=== PATIENT | female | born 1955 | race Caucasian/White ===

== ENCOUNTER 2018-02-26 17:00 | Outpatient (REF) | payer OTHER, SELFPAY ==
[2018-02-26 20:41] LABS: Bacteria Rare HPF (Negative); Epithelial Cells Rare HPF (Negative); Other Cells Negative (Negative); RBC 0-2 (0-2); WBC 0-2 HPF (0-5)
[2018-02-26 20:42] LABS: C & S Indicated? C&S Done As Ordered; Casts Negative LPF (Negative); Crystals Many Calcium Oxalate HPF (Negative); Mucus Negative (Negative)
== END 2018-02-26 17:20 ==
LOC: NCHCN 17:00
PROVIDERS: PCP Physician Assistant Medical; Visit Provider Specialist/Technologist Athletic Trainer
DX: R10.84 Generalized abdominal pain (principal)
CPT/HCPCS: 81015; 87086

== ENCOUNTER 2018-02-27 16:19 | Outpatient (CLI) | payer OTHER, SELFPAY ==
[2018-02-27 16:48] LABS: Absolute Basophil Count 0.02 k/cumm (0.0-0.2); Absolute Eosinophil Count 0.09 k/cumm (0.0-0.7); Absolute Lymphocyte Count 1.51 k/cumm (1.2-3.4); Absolute Neutrophil Count 2.61 k/cumm (1.2-6.7); Basophils % 0.4; Eosinophils % 1.9; HCT 37.8 % (36.0-46.0); HGB 12.7 g/dL (12.0-15.5); Lymphocytes % 32.6; Mean Corp. HGB Concentration 33.6 g/dL (32.0-36.0); Mean Corpuscular Hemoglobin 31.3 pg (27.0-33.0); Mean Corpuscular Volume 93.1 fL (80-95); Mean Platelet Volume 11.2 fL (8.0-11.0); Monocytes % 8.6; Neutrophils % 56.5; Platelet Count 176 x1000/uL (130-400); RBC 4.06 m/cumm (4.00-5.20); RBC Distribution Width 12.1 % (11.7-14.6); White Blood Cell Count 4.63 k/cumm (4.4-10.8)
[2018-02-27 17:42] LABS: ALT 26 U/L (12-78); AST 18 U/L (15-37); Alkaline Phosphatase 58 U/L (46-116); Anion Gap 10.4 mmol/L (3-11); BUN 14 mg/dL (7-18); Bilirubin, Total 0.4 mg/dL (0.2-1.0); CO2 26.6 mmol/L (21.0-32.0); CREATININE 0.69 mg/dL (0.55-1.02); Calcium 9.4 mg/dL (8.5-10.1); Chloride 104 mmol/L (98-107); Glucose 111 mg/dL (70-100); Potassium 3.8 mmol/L (3.5-5.1); Sodium 141 mmol/L (136-145); Total Protein 6.9 g/dL (6.4-8.2)
[2018-02-27 20:32] LABS: Lipase 240 U/L (73-393)
[2018-03-01 19:01] LABS: Tissue Transglutaminase Ab IgA <1.2 U/mL; Tissue Transglutaminase Ab IgG 1.4 U/mL
== END 2018-02-27 16:39 ==
PROVIDERS: PCP Physician Assistant Medical; Visit Provider Specialist/Technologist Athletic Trainer
DX: R10.84 Generalized abdominal pain (principal)
CPT/HCPCS: 36415; 80053; 83690; 83516; 85025

== ENCOUNTER 2018-11-03 15:22 | Outpatient (REF) | payer OTHER, SELFPAY ==
[2018-11-03 21:23] LABS: Bilirubin Negative (Negative); Blood Trace-intact (Negative); Clarity Clear (Clear); Glucose Negative (Negative); Ketones Negative (Negative); Leukocyte Esterase Negative (Negative); Nitrite Negative (Negative); Specific Gravity 1.015 (1.005-1.025); Urobilinogen 0.2 EU/dL (Up TO 0.2); pH 7.5 (5-8)
[2018-11-03 21:31] LABS: Bacteria Negative HPF (Negative); C & S Indicated? No; Casts Negative LPF (Negative); Crystals Negative HPF (Negative); Epithelial Cells Negative HPF (Negative); Mucus Negative (Negative); WBC 0-2 HPF (0-5)
== END 2018-11-03 15:42 ==
LOC: NCHCN 15:22
PROVIDERS: PCP Physician Assistant Medical; Visit Provider Physician Assistant Medical
DX: R10.2 Pelvic and perineal pain (principal)
CPT/HCPCS: 81003; 81015

== ENCOUNTER 2018-11-06 01:27 | Outpatient (CLI) | payer OTHER, SELFPAY ==
--- NOTE | 2018-11-06 14:16 | DI.US_ITS ---
EXAM: US PELVIS AND TRANSVAGINAL CLINICAL HISTORY: PELVIC PAIN R10.2. TECHNIQUE: Pelvic ultrasound was performed transabdominally and transvaginally. COMPARISON: No exams were available for comparison FINDINGS: Please see the accompanying data sheet for measurements of pelvic structures. Endometrial stripe is heterogeneous and about 10 millimeters in thickness, this is abnormal in the postmenopausal group and correlation with endometrial biopsy should be considered to exclude neoplastic disease. Right ovary unremarkable in appearance. Left ovary nonvisualized transabdominally or transvaginally. Limited s gurwinder of the kidneys is unremarkable. IMPRESSION: Thickened heterogeneous endometrial stripe, endometrial biopsy should be considered to exclude neopla stic disease
== END 2018-11-06 01:47 ==
PROVIDERS: PCP Physician Assistant Medical; Visit Provider Physician Assistant Medical
DX: R10.2 Pelvic and perineal pain (principal); R93.89 Abnormal findings on diagnostic imaging of other specified body structures
CPT/HCPCS: 76830; 76856

== ENCOUNTER 2018-11-21 13:13 | Outpatient (REF) | payer OTHER, SELFPAY ==
--- NOTE | 2018-11-21 12:15 | ENDOMET_PTH ---
PATIENT: Soniya Sahu LOC: N U#:[id number] AGE/SX: 63/F ROOM: RE11/21/[address]: Li Linn MD : 1955 BED: DIS: 11/21/2018 SPEC #: [id number] RECD: 11/21/18 17:25 STATUS: ESTHER REQ #: [id number] CHIQUITA: 11/21/18 12:[address]: Li Linn DEPT: Surgical Specimen RECD BY: Christine Sosa ENTERED: 11/21/18 17:25 SP TYPE: Endomet OTHR DR: Priti Walsh Tissues: 1 - ENDOMETRIUM BX/MARYBETH Procedures: GROSS AND MICRO LEVEL 4 Comments: [id number]
== END 2018-11-21 13:33 ==
LOC: LBN 13:13
PROVIDERS: PCP Physician Assistant Medical; Visit Provider Obstetrics & Gynecology
DX: N85.8 Other specified noninflammatory disorders of uterus (principal); N95.8 Other specified menopausal and perimenopausal disorders
CPT/HCPCS: 88305

== ENCOUNTER 2019-01-27 02:33 | Outpatient (CLI) | payer OTHER, SELFPAY ==
--- NOTE | 2019-01-27 16:02 | DI.MAMMO_ITS ---
EXAM: MG MAMMO SCREENING CLINICAL HISTORY: SCREENING, Z13.9. TECHNIQUE: Full field digital CC and MLO mammographic images were obtained with 3D tomosynthesis and utilizing computer aided detection (CAD). COMPARISON: 2012 FINDINGS: Breast density: B Masses/Architectural Distortion: None seen. Microcalcifications: No suspicious pleomorphic-type calcifications are seen. Skin Thickening/Nipple Retraction: None. Axilla: Unremarkable. IMPRESSION: 1. BI-RADS category 1, negative. No significant interval change with no specific features of maligna ncy noted. 2. Unless there is more urgent need, screening mammography is recommended, as per [employer] guidelines. BI-RADS Cat 1 - Negative Breast Density - Category B - Scattered areas of fibroglandular density A negative radiographic report should not delay biopsy if a dominant or clinically suspicious mass is present. Up to ten percent of cancers are not identified on mammography. A negative report may reinforce clinical impression. Adenosis and dense breasts may obscure an underlying neoplasm. False positive reports average 6 to 10%. Patient will receive a letter notifying them of these results.
== END 2019-01-27 02:53 ==
PROVIDERS: PCP Physician Assistant Medical; Visit Provider Physician Assistant Medical
DX: Z12.31 Encounter for screening mammogram for malignant neoplasm of breast (principal)
CPT/HCPCS: 77063; 77067

== ENCOUNTER 2019-07-25 08:53 | Emergency (ER) | payer OTHER, SELFPAY ==
[2019-07-25] VITALS (57 sets, daily range): BP systolic 112–165; BP diastolic 51–83; PULSE 51–81; RESP 12–25; TEMP 36.8; O2SAT 97–100
[2019-07-25 09:13] LABS: Absolute Basophil Count 0.04 k/cumm (0.0-0.2); Absolute Monocyte Count 0.42 k/cumm (0.11-0.7); Absolute Neutrophil Count 2.49 k/cumm (1.2-6.7); Basophils % 0.9; Eosinophils % 2.3; HCT 40.5 % (36.0-46.0); HGB 13.3 g/dL (12.0-15.5); Lymphocytes % 29.9; Mean Corp. HGB Concentration 32.8 g/dL (32.0-36.0); Mean Corpuscular Hemoglobin 30.8 pg (27.0-33.0); Mean Corpuscular Volume 93.8 fL (80-95); Mean Platelet Volume 11.4 fL (8.0-11.0); Monocytes % 9.7; Neutrophils % 57.2; Platelet Count 188 x1000/uL (130-400); RBC 4.32 m/cumm (4.00-5.20); RBC Distribution Width 12.2 % (11.7-14.6); White Blood Cell Count 4.35 k/cumm (4.4-10.8)
[2019-07-25 09:28] LABS: ALT 30 U/L (14-59); AST 22 U/L (15-37); Alkaline Phosphatase 69 U/L (46-116); BUN 9 mg/dL (7-18); Bilirubin, Total 0.5 mg/dL (0.2-1.0); CREATININE 0.88 mg/dL (0.55-1.02); Calcium 9.7 mg/dL (8.5-10.1); Chloride 104 mmol/L (98-107); Glucose 82 mg/dL (74-106); Potassium 3.8 mmol/L (3.5-5.1); Sodium 142 mmol/L (136-145); Total Protein 7.5 g/dL (6.4-8.2)
[2019-07-25 09:29] LABS: Troponin I < 0.05 ng/mL (<0.06)
--- NOTE | 2019-07-25 09:31 | ED.GENADUL_ITS ---
Discharge Plan Disposition Patient Disposition: AGAINST MEDICAL ADVICE Condition: Stable Discharge Details Chief Complaint: Chest Pain Clinical Impression: Chest pain, Left arm pain, Back pain Primary Care Provider: Priti Walsh ED Provider: Lisa Werner Home Meds and New Rx's Prescriptions: No Action No Known Home Meds RF: 0 Discharge Instructions Instructions: Chest Pain (ED), Back Pain (ED) Additional Instructions: Drink plenty of fluids and get plenty of rest. Take Tylenol as needed and directed for pain. You will be contacted regarding a follow-up appointment for an outpatient stress test. Call your primary care doctor's office on Saturday morning to arrange for follow- up appointment and to follow-up on the scheduling of the outpatient stress test. Return immediately to the emergency department if you develop any worsening or new concerning symptoms. Discharge Data Discharge Date/Time-TO BE ENTERED AT DEPARTURE: 07/25/19 13:49 Discharge Physician: Lisa Werner Medical Decision Making 0900 -- 63-year-old female with a history of GERD, arthritis who presents for intermittent aching mid back pain with radiation to her left arm causing heaviness and discomfort since yesterday and a brief episode of substernal sharp chest pain today. Discomfort in arm currently 6/10. EKG notes a rate of 61, sinus with no acute ST ischemic changes. She appears in no acute distress. Blood pressure mildly hypertensive 158/68. Lungs clear. Distal pulses intact. No focal deficits. Her arm discomfort is concerning for possible ACS. Patient states she would rather go home if possible. She is agreeable to stay for second troponin. 1000 -- labs and imaging reviewed and unremarkable. Troponin negative. CT negative for acute findings. 1230 -- Repeat EKG notes a rate of 53, sinus with no acute ST ischemic changes. Second troponin negative. Patient had relief of pain with 1 nitro. She did develop a headache and declined any further nitro. Headache resolved with 325 aspirin p.o. x 1. She declined any Tylenol. Discussed with patient that with her concerning history of arm, chest and back pain which was responsive to nitro, would recommend admission for observation, serial troponins, and plan for stress test. Despite our efforts, the patient has decided to leave against medical advice. She has a normal mental status and full decisional capacity. The patient understands her condition and the risks of leaving AMA, including BUT NOT LIMITED TO permanent disability, , etc., and has had an opportunity to ask questions about her medical condition. The patient has been informed that she may return for care at any time, and has been referred to her local medical physician for follow up VIRGIE. An order was also placed for an outpatient stress test. Medical Records Medical records reviewed: Yes I reviewed the patient's medical records. Imaging Data Radiologic Study: Radiologist's impression: CT Angiography Chest With Contrast Exam date and time: 07/25/2019 10:11 AM Age: 63 years old Clinical indication: Other: Chest pain, back pain, lt arm pain TECHNIQUE: Imaging protocol: Computed tomographic angiography of the chest with intravenous contrast. 3D rendering: MIP and/or 3D reconstructed images were created by the technologist. Radiation optimization: All CT scans at this facility use at least one of these dose optimization techniques: automated exposure control; mA and/or kV adjustment per patient size (includes targeted exams where dose is matched to clinical indication); or iterative reconstruction. Contrast material: OMNIPAQUE 350; Contrast volume: 61 ml; Contrast route: IV; COMPARISON: No relevant prior studies available. FINDINGS: Pulmonary arteries: No evidence of pulmonary embolus to the segmental level. Aorta: No aneurysm of the aorta. No dissection of the aorta. Lungs: Mild panlobular emphysematous changes Bibasilar atelectasis Pleural space: Unremarkable. No pneumothorax. No pleural effusion. Heart: Unremarkable. No cardiomegaly. No pericardial effusion. Lymph nodes: Unremarkable. No enlarged lymph nodes. Bones/joints: Unremarkable. No acute fracture. Soft tissues: Unremarkable. IMPRESSION: 1. No evidence of pulmonary embolus to the segmental level. 2. No aneurysm of the aorta. 3. No dissection of the aorta. Lab Data Lab results reviewed: Yes I reviewed the patient's lab results. Labs: Laboratory Tests Range/Units 07/25/19 07/25/19 07/25/19 09:05 09:05 12:03 WBC (4.4-10.8) k/cumm 4.35 L RBC (4.00-5.20) m/cumm 4.32 Hgb (12.0-15.5) g/dL 13.3 Hct (36.0-46.0) % 40.5 MCV (80-95) fL 93.8 MCH (27.0-33.0) pg 30.8 MCHC (32.0-36.0) g/dL 32.8 RDW (11.7-14.6) % 12.2 Plt Count (130-400) x1000/uL 188 MPV (8.0-11.0) fL 11.4 H Immature Gran % % 0.0 Neutrophils % 57.2 Lymphocytes % 29.9 Monocytes % 9.7 Eosinophils % 2.3 Basophils % 0.9 Absolute Neutrophils (1.2-6.7) k/cumm 2.49 Absolute Lymphocytes (1.2-3.4) k/cumm 1.30 Absolute Monocytes (0.11-0.7) k/cumm 0.42 Absolute Eosinophils (0.0-0.7) k/cumm 0.10 Absolute Basophils (0.0-0.2) k/cumm 0.04 Sodium (136-145) mmol/L 142 Potassium (3.5-5.1) mmol/L 3.8 Chloride (98-107) mmol/L 104 Carbon Dioxide (21.0-32.0) mmol/L 30.0 Anion Gap (3-11) mmol/L 8.0 BUN (7-18) mg/dL 9 Creatinine (0.55-1.02) mg/dL 0.88 Estimated GFR/1.73 m2 (mL/min/1.73m2) >= 60.00 Glucose (74-106) mg/dL 82 Calcium (8.5-10.1) mg/dL 9.7 Magnesium (1.8-2.4) mg/dL 2.0 Total Bilirubin (0.2-1.0) mg/dL 0.5 AST (15-37) U/L 22 ALT (14-59) U/L 30 Alkaline Phosphatase (46-116) U/L 69 Troponin I (<0.06) ng/mL < 0.05 < 0.05 Total Protein (6.4-8.2) g/dL 7.5 Albumin (3.4-5.0) g/dL 4.0 ECG Data Attestation: I personally reviewed and interpreted this ECG (s) as follows: Interpretation: Rate of 61, sinus. No acute ST elevation or depression. MT 110. QTc 379. QRS 90. Rate of 53, sinus. No acute ST elevation or depression. MT 114. QTc 396. QRS 88. HPI General Mode of arrival: ambulatory . Date/Time Provider Initiated Documentation: 07/25/19 08:55 . Limitations to Documentation: no limitations . Information obtained by: patient . HPI Narrative: Patient is a 63-year-old female with a history of GERD and irritable bowel syndrome who presents with 2 days of back pain with radiation to her left arm causing discomfort and heaviness. She admits to a brief few second episode of sharp substernal chest pain this morning while she was sitting texting but none since then. She describes the back pain is aching and intermittent. She denies any aggravating or alleviating factors. She denies any fever, cough, shortness of breath, carlo sea, vomiting, dizziness. She is unsure if she has had a stress test in the past. She denies any known injury, recent travel, recent surgery, leg pain or swelling Related Data Home Medications Medication Instructions Recorded Confirmed Unknown [No Known Home Meds] 07/25/19 07/25/19 Allergies Allergy/AdvReac Type Severity Reaction Status Date / Time No Known Allergies Allergy Unverified 07/25/19 09:02 General Stated Complaint: Chest Pain JESSICA: 2 Review of Systems All systems reviewed & are unremarkable except as noted in HPI and below Constitutional Constitutional: Reports as per HPI, Denies chills and Denies fever(s) Eyes Eyes: Denies blurry vision ENT Ears, Nose, Mouth, and Throat: Denies dizziness, Denies sore throat and Denies throat swelling Cardiovascular Cardiovascular: Denies chest pain and Denies dyspnea Respiratory Respiratory: Denies cough and Denies dyspnea Gastrointestinal Gastrointestinal: Denies abdominal pain, Denies diarrhea and Denies vomiting Genitourinary Genitourinary: Denies hematuria and Denies dysuria Musculoskeletal Musculoskeletal: Denies back pain and Denies numbness Integumentary/Breasts Skin/Breast: Denies lesions and Denies rash Neurologic Neurologic: Denies dizziness, Denies localized weakness and Denies numbness Allergic/Immunologic Allergic/Immunologic: Denies throat swelling [facility] Medical History (Updated 07/25/19 @ 13:28 by Lisa Werner DO) Degenerative joint disease (Chronic) GERD (gastroesophageal reflux disease) (Chronic) Irritable bowel syndrome (Chronic) Neuropathy (Acute) Surgical History (Updated 07/25/19 @ 11:12 by OFELIA Amin H/O thumb surgery (Acute) History of bilateral tubal ligation (Acute) Social History Smoking/Tobacco Use Status: Former Tobacco Use Alcohol Intake: never Drug use: Never Substance use type: does not use Do you feel safe at home: Yes Do you feel safe in your relationship?: Yes Exam Const General: cooperative, healthy appearing and no acute distress HENMT Head: normal to inspection Face and sinus: normal facial exam Eyes General: appearance normal, both eyes and all related structures EOM: EOM intact bilaterally Neck Neck: normal visual inspection and No submandibular swelling Lymphatic: no lymphadenopathy noted Chest Chest: normal inspection of the chest and no tenderness Resp Effort & Inspection: normal respiratory effort and able to speak in complete sentences Auscultation: clear to auscultation bilaterally Cardio Rate: regular rate Rhythm: regular rhythm GI Inspection: normal to inspection Palpation: soft, not firm, not rigid and nontender Auscultation: normal bowel sounds Back/Spine/Pelvis Thoracic/Lumbar Spine: thoracic and lumbar spine normal to inspection, No thoracic spinal tenderness and No lumbar spinal tenderness Skin General skin exam: no rashes or lesions noted Neuro General: patient alert, patient awake, patient oriented x3 and moves all extremities Cognition: normal cognition Speech: speech normal Motor: muscle tone normal throughout and strength 5/5 throughout Sensory Exam: no sensory deficits noted Extrem General: normal to inspection, full ROM, capillary refill normal, no calf tenderness bilaterally and no edema Other: Bilateral radial and ulnar pulses intact. Psych Appearance: grossly normal Mental Status: mental status grossly normal Speech and Movement: speech and movement normal Affect: normal affect Course Vital Signs Vital signs: Vital Signs Temperature 98.2 F 07/25/19 08:57 Pulse 60 07/25/19 08:57 Respiratory Rate 18 07/25/19 08:57 Blood Pressure 165/71 H 07/25/19 08:57 Pulse Oximetry 100 07/25/19 08:57 Temperature 98.2 F 07/25/19 08:57 Temperature Source Temporal Artery Scan 07/25/19 08:57 Pulse 60 07/25/19 08:57 Respiratory Rate 18 07/25/19 09:04 Respiratory Effort Non-Labored 07/25/19 09:04 Respiratory Depth Normal 07/25/19 09:04 Respiratory Pattern Normal 07/25/19 09:04 Blood Pressure 165/71 H 07/25/19 08:57 Blood Pressure Position Supine 07/25/19 08:57 Pulse Oximetry 100 07/25/19 08:57 Oxygen Delivery Method Room Air 07/25/19 08:57 Oxygen Flow Rate 0 07/25/19 08:57 Pain Level 4 07/25/19 08:57 Lab/Test Results Lab/Test Results: Laboratory Tests Range/Units 07/25/19 07/25/19 09:05 09:05 WBC (4.4-10.8) k/cumm 4.35 L RBC (4.00-5.20) m/cumm 4.32 Hgb (12.0-15.5) g/dL 13.3 Hct (36.0-46.0) % 40.5 MCV (80-95) fL 93.8 MCH (27.0-33.0) pg 30.8 MCHC (32.0-36.0) g/dL 32.8 RDW (11.7-14.6) % 12.2 Plt Count (130-400) x1000/uL 188 MPV (8.0-11.0) fL 11.4 H Immature Gran % % 0.0 Neutrophils % 57.2 Lymphocytes % 29.9 Monocytes % 9.7 Eosinophils % 2.3 Basophils % 0.9 Absolute Neutrophils (1.2-6.7) k/cumm 2.49 Absolute Lymphocytes (1.2-3.4) k/cumm 1.30 Absolute Monocytes (0.11-0.7) k/cumm 0.42 Absolute Eosinophils (0.0-0.7) k/cumm 0.10 Absolute Basophils (0.0-0.2) k/cumm 0.04 Sodium (136-145) mmol/L 142 Potassium (3.5-5.1) mmol/L 3.8 Chloride (98-107) mmol/L 104 Carbon Dioxide (21.0-32.0) mmol/L 30.0 Anion Gap (3-11) mmol/L 8.0 BUN (7-18) mg/dL 9 Creatinine (0.55-1.02) mg/dL 0.88 Estimated GFR/1.73 m2 (mL/min/1.73m2) >= 60.00 Glucose (74-106) mg/dL 82 Calcium (8.5-10.1) mg/dL 9.7 Magnesium (1.8-2.4) mg/dL 2.0 Total Bilirubin (0.2-1.0) mg/dL 0.5 AST (15-37) U/L 22 ALT (14-59) U/L 30 Alkaline Phosphatase (46-116) U/L 69 Troponin I (<0.06) ng/mL < 0.05 Total Protein (6.4-8.2) g/dL 7.5 Albumin (3.4-5.0) g/dL 4.0
--- NOTE | 2019-07-25 09:45 | DI.CT_ITS ---
EXAM: CT CHEST PE CTA CLINICAL HISTORY: Chest pain, back pain, L arm pain. TECHNIQUE: Imaging Protocol: Axial CT angiography was performed with multi-slice acquisition and mu lti-planar and/or 3D reconstructions. CONTRAST MATERIAL: Intravenous: Omnipaque 350 Contrast volume:61 ml COMPARISON: No exams were available for comparison FINDINGS: Pulmonary Arteries: No evidence of filling defect to suggest pulmonary emboli. Tracheobronchial tree: Patent where visualized. Mediastinum and Claudia: No dominant adenopathy or fluid collection. Pulmonary parenchyma: No consolidation or dominant measurable mass. Emphysematous changes in the uppe r lobes. Pleura: No effusion or pneumothorax. Heart: The heart is not dilated. No coronary artery calcifications are seen. Aorta: Thoracic aorta non-dilated. Upper abdomen: Unremarkable. Bones: Normal. IMPRESSION: No evidence of pulmonary embolism or other acute abnormality. RADIATION DOSE DELIVERED: 327.25mGy.cm Total DLP DATA REPOSITORY: All CT scans at this facility are submitted to the National Radiology Data Registry (NRDR) Dose Index Registry (DIR) with the [employer] (ACR). RADIATION OPTIMIZATION: All CT scans at this facility use at least one of these dose optimization te chniques: automated exposure control; mA and/or kV adjustment per patient size (includes targeted exa ms where dose is matched to clinical indication); or iterative reconstruction.
[2019-07-25] MEDS: Normal Saline Flush 10 ML SYR IVP (10:12)
[2019-07-25] MEDS: Omnipaque 350 MG/ML 100 ML BTL IJ (10:12)
--- NOTE | 2019-07-25 10:36 | DI.VRAD_ITS ---
PROCEDURE INFORMATION: Exam: CT Angiography Chest With Contrast Exam date and time: 07/25/2019 10:11 AM Age: 63 years old Clinical indication: Other: Chest pain, back pain, lt arm pain TECHNIQUE: Imaging protocol: Computed tomographic angiography of the chest with intravenous contrast. 3D rendering: MIP and/or 3D reconstructed images were created by the technologist. Radiation optimization: All CT scans at this facility use at least one of these dose optimization techniques: automated exposure control; mA and/or kV adjustment per patient size (includes targeted exams where dose is matched to clinical indication); or iterative reconstruction. Contrast material: OMNIPAQUE 350; Contrast volume: 61 ml; Contrast route: IV; COMPARISON: No relevant prior studies available. FINDINGS: Pulmonary arteries: No evidence of pulmonary embolus to the segmental level. Aorta: No aneurysm of the aorta. No dissection of the aorta. Lungs: Mild panlobular emphysematous changes Bibasilar atelectasis Pleural space: Unremarkable. No pneumothorax. No pleural effusion. Heart: Unremarkable. No cardiomegaly. No pericardial effusion. Lymph nodes: Unremarkable. No enlarged lymph nodes. Bones/joints: Unremarkable. No acute fracture. Soft tissues: Unremarkable. IMPRESSION: 1. No evidence of pulmonary embolus to the segmental level. 2. No aneurysm of the aorta. 3. No dissection of the aorta. Dictated and Authenticated by: Sushma Rebollar MD. Ordering:NICHOLAS Gonzalez MD
[2019-07-25] MEDS: Normal Saline 1,000 ML 1000 ML IV (10:39)
[2019-07-25] MEDS: Aspirin 325 MG TAB PO (10:51)
[2019-07-25 12:29] LABS: Troponin I < 0.05 ng/mL (<0.06)
--- NOTE | 2019-07-27 09:38 | PDOC.ERCMPRO ---
- If Service Date Differs Date of service: 07/27/19 Time of Service: 09:38 Care Management Progress Note At the request of ED provider, CM coordinates patient being seen by PCP (Priti Walsh - [facility]) for a follow up appointment to ED visit, in addition to requesting PCP order a stress test from DI.
== END 2019-07-25 13:49 | disposition left against medical advice (07) ==
PROVIDERS: Emergency Provider Physician Assistant; PCP Physician Assistant Medical
DX: M79.602 Pain in left arm (principal); R07.89 Other chest pain; M54.6 Pain in thoracic spine; K21.9 Gastro-esophageal reflux disease without esophagitis; Z53.29 Procedure and treatment not carried out because of patient's decision for other reasons
CPT/HCPCS: 36415; 71275; 80053; 93005; 96360; 99285; 83735; 84484; 85025; 93010; J3490

== ENCOUNTER 2019-07-28 08:44 | Outpatient (REF) | payer OTHER, SELFPAY ==
[2019-07-28 20:23] LABS: Calculated LDL 61 mg/dL (<100); Cholesterol 152 mg/dL (<200); HDL Cholesterol 76 mg/dL (40-60); Triglyceride 77 mg/dL (<150)
== END 2019-07-28 09:04 ==
LOC: NCHCN 08:44
PROVIDERS: PCP Physician Assistant Medical; Visit Provider Physician Assistant Medical
DX: R07.9 Chest pain, unspecified (principal)
CPT/HCPCS: 80061

== ENCOUNTER 2019-07-30 02:49 | Outpatient (CLI) | payer OTHER, SELFPAY ==
--- NOTE | 2019-07-30 | ETT_ITS ---
APPROVED REPORT Exam: Exercise Treadmill Patient Location: Out-Patient Room/Bed: Stress Nurse: Brooklynn King RN BMI: 22.62 Baseline Rhythm: Sinus Bradycardia, with a short VA interval of 0.10. Frequent PAC's. Indications: Patient reports brief ???on and off??? midsternal chest pain (06/20) with both rest and a ctivity. On 07/25/2019 she presented to the ED with dull aching between her shoulder blades in her shane k, sharp left shoulder pain and a dull aching of her left arm. In the ED her discomfort relieved with 1 Nitro and troponins were negative X2. Medical History Medical History: GERD, Degenerative Joint Disease. Cardiac Medications: None reported by patient., Allergies: No known drug allergies Cardiac Risk Factors: No cardiac risk factors. Previous Cardiac Procedures: None Pretest Chest Pain Characteristics: Dull aching between her shoulder blades in her back, sharp left s houlder pain and a dull aching of her left arm. (08/20). Exercise History: Physically active Physical Disabilities: None Lung Sounds: Clear to auscultation Heart Sounds: Regular Stress Test Details Test: Exercise stress testing was performed using a Johnny protocol. Rest Stress HR Resting HR Supine: 54 bpm Max Heart Rate (APMHR): 157 bpm Resting HR Standin bpm Target HR (85% APMHR): 133 bpm Max HR Achieved: 167 bpm % of APMHR: 106 HR response to stress: Normal HR response to stress BP Resting BP Supine: 140/72 mmHg Resting BP Standin/70 mmHg Max BP: 162/60 mmHg BP response to stress: Normal blood pressure response to stress. ECG Resting ECG: Sinus Bradycardia Stress ECG: Sinus Tachycardia ST Change: Horizontal ST depression Lead(s): II, III, aVF Stage: [address] Deviation: 1.5 mm Arrhythmia: APC's Recovery ECG: Sinus tachycardia Recovery ST Change: Horizontal ST depression Lead(s): Inferior leads Recovery ST Deviation: 1 mm Recovery Arrhythmia: VPC Clinical Reason for Termination: Fatigue Stress Symptoms: No changes in back, left shoulder and left arm pain per patient report. Exercise duration: 9 min32 sec Highest Stage Reached: Stage 4: 4.2 mph at 16% grade. Exercise capacity: 11.01 METs Functional Capacity: Above average capacity Stress ECG Conclusion 1. Patient exercised for 9 minutes and 30 seconds (11 METS). Exercise was stopped due to fatigue. 2. There were no symptoms suggestive of ischemia. 3. The patient had 1.[address] depressions in the inferior leads during exercise and the ini tial points of recovery. 4. The Madrid Score ( 1) estimates an annual cardiovascular mortality of 1% and a five year survival of 93%. Using the Madrid Score there is an intermediate probability of angiographic coronary disease. Stress Test Summary STAGE Time (mins) Speed (mph) Grade (%) HR BP SYMPTOMS METS Supine 54 140/72 Standing 66 136/70 1 3 1.7 10 104 148/68 4.6 2 6 2.5 12 110 154/62 7 3 9 3.4 14 135 10.2 1 min recovery 136 162/60 3 min recovery 92 156/64 6 min recovery 75 148/70 9 min recovery 71 144/72
--- NOTE | 2019-07-30 08:25 | DI.RAD_ITS ---
EXAM: XR THORACIC SPINE COMPLETE CLINICAL HISTORY: THORACIC BACK PAIN, M54.6. TECHNIQUE: 2D digital imaging was performed. COMPARISON: No exams were available for comparison FINDINGS: BONES: There is no fracture or destructive lesion. The vertebral bodies and posterior elements are un remarkable. DISKS:Interverebral disc spaces are maintained. There are minimal degenerative disc changes in the mi d thoracic spine . SOFT TISSUE: Visualized lungs are clear. IMPRESSION: Minimal degenerative changes. DATA REPOSITORY: RADIATION DOSE DELIVERED:
== END 2019-07-30 03:09 ==
PROVIDERS: PCP Physician Assistant Medical; Visit Provider Physician Assistant Medical
DX: R07.9 Chest pain, unspecified (principal); M79.622 Pain in left upper arm; K21.9 Gastro-esophageal reflux disease without esophagitis; M54.6 Pain in thoracic spine; M51.34 Other intervertebral disc degeneration, thoracic region
CPT/HCPCS: 72072; 93017

== ENCOUNTER → 2022-01-11 02:23 | Outpatient (CLI) | payer MEDICARE, SELFPAY ==
--- NOTE | 2022-01-11 07:23 | DI.MAMMO_ITS ---
Exam(s) MAMMO SCREENING EXAM: MAMMO SCREENING CLINICAL HISTORY: SCREENING, Z12.31 TECHNIQUE: Mammograms were interpreted according to the usual protocol including computer analysis w ith CAD system, tomosynthesis and C-view imaging. COMPARISON: FINDINGS: The breasts are of moderate density with fairly symmetrical distribution of fibroglandular tissue. N o dominant mass or clumped microcalcification is identified in either breast. The current examinatio n is compared with previous examinations including January 2019 and there is increased prominence of a focal area of asymmetric density with an irregular appearance in the retroareolar portion of left breast seen on MLO view only. Additional mammographic views of this area are requested to include ML O spot compression view of the left breast. No other significant change seen. IMPRESSION: Additional mammographic views of the left breast requested as described above. Breast ultrasound may be indicated as well depending on the results of the additional mammographic views. BI-RADS Category 0 - Assessment Incomplete: Need additional imaging evaluation Breast Density - Category B - Scattered areas of fibroglandular density
== END ==
PROVIDERS: PCP Physician Assistant Medical; Visit Provider Physician Assistant Medical
DX: Z12.31 Encounter for screening mammogram for malignant neoplasm of breast (principal); R92.8 Other abnormal and inconclusive findings on diagnostic imaging of breast
CPT/HCPCS: 77063; 77067

== ENCOUNTER → 2022-01-23 01:21 | Outpatient (CLI) | payer MEDICARE, SELFPAY ==
--- NOTE | 2022-01-23 | DI.US_ITS ---
Exam(s) MG MAMMO SCREEN CALL BACK UNI US BREAST LT COMPLETE EXAM: MG MAMMO SCREEN CALL BACK UNI and U/S breast LT complete CLINICAL HISTORY: F/U MAMMO, R92.8,INCREASED ASYMMETRIC DENSITY,IRREGULAR APPEARANCE. TECHNIQUE: Craniocaudal and mediolateral oblique Full Field Digital Mammography views of the left br east with Computer Aided Diagnosis followed by Tomosynthesis and left breast ultrasound. COMPARISON: Comparison is made with prior examinations. FINDINGS: Mammography/Tomosynthesis: Masses/Architectural Distortion: The area of concern is less concerning on the subsequent additional view. No suspicious masses or areas of architectural distortion are present. Microcalcifictions: No suspicious pleomorphic-type are seen. Skin Thickening/Nipple Retraction: None. Complete left breast US: Echotexture: Normal appearance of the glandular tissue. Shadowing: No suspicious foci. Cyst: None. Solid lesions: None seen. Ductal dilation: None. IMPRESSION: 1. No evidence of malignancy is noted. 2. Unless there is more urgent need, follow-up screening mammography is recommended, as per [employer] guidelines. 3. The findings were discussed with the patient on the date of the examination. BI-RADS Category 1 - Negative Breast Density - Category B - Scattered areas of fibroglandular density Breast density Category C or D implies that the patient has dense breast tissue. Dense breast tissue can make it harder to find cancer on a mammogram. Dense breast tissue is also associated with an incr eased risk of breast cancer. This information about the result of the mammogram report was provided to the patient to raise their awareness. Use this report when you speak with the patient about their risks for breast cancer, which includes their family history. At that time, you may recommend additional screening tests (Ultrasoun d or MRI) as these tests may add significant information. A negative radiographic report should not delay biopsy if a dominant or clinically suspicious mass is present. Up to ten percent of cancers are not identified on mammography. A negative report may reinforce clinical impression. Adenosis and dense breasts may obscure an underlying neoplasm. False positive reports average 6 to 10%. Patient will receive a letter notifying them of these results.
== END ==
PROVIDERS: PCP Physician Assistant Medical; Visit Provider Physician Assistant Medical
DX: R92.8 Other abnormal and inconclusive findings on diagnostic imaging of breast (principal); Z12.31 Encounter for screening mammogram for malignant neoplasm of breast
CPT/HCPCS: 76642; 77063; 77067

== ENCOUNTER 2022-01-24 13:59 | Outpatient (REF) | payer MEDICARE, SELFPAY ==
[2022-01-24 20:41] LABS: Abs Immature Grans 0.02 10^3/uL (0.0-0.06); Absolute Basophil Count 0.02 10^3/uL (0.0-0.2); Absolute Eosinophil Count 0.21 10^3/uL (0.0-0.7); Absolute Lymphocyte Count 1.38 10^3/uL (1.2-3.4); Absolute Monocyte Count 0.31 10^3/uL (0.1-0.8); Absolute Neutrophil Count 3.93 10^3/uL (1.2-6.7); Basophils % 0.3; Eosinophils % 3.6; Immature Grans % 0.3; Lymphocytes % 23.5; MCH 30.1 pg (27.0-33.0); MCHC 32.4 % (32.0-36.0); MCV 93 fL (80-95); MPV 12.6 fL (8.0-11.0); Monocytes % 5.3; Platelet Count 191 10^3/uL (130-400); RBC 3.99 10^6/uL (3.93-5.22); RDW 11.9 % (11.7-14.6); RDW-SD 40.5 fL; WBC 5.87 10^3/uL (4.4-10.8)
[2022-01-24 21:14] LABS: ALT 24 U/L (14-59); AST 21 U/L (15-37); Alkaline Phosphatase 72 U/L (46-116); Anion Gap 8.5 mmol/L (3-11); BUN 16 mg/dL (7-18); Bilirubin, Total 0.3 mg/dL (0.2-1.0); CO2 28.5 mmol/L (21.0-32.0); CREATININE 0.9 mg/dL (0.55-1.02); Calcium 9.1 mg/dL (8.5-10.1); Chloride 104 mmol/L (98-107); Estimated GFR 70.51 (mL/min/1.73m2); Glucose 157 mg/dL (74-106); Potassium 3.8 mmol/L (3.5-5.1); Sodium 141 mmol/L (136-145); TSH (W/Ref FT4) 2.68 uIU/mL (0.36-3.74); Total Protein 6.9 g/dL (6.4-8.2)
[2022-01-25 10:36] LABS: Hemoglobin A1C 5.9 % (<5.7)
== END 2022-01-24 14:00 | disposition home or self-care (01) ==
LOC: NCHCN 13:59
PROVIDERS: PCP Physician Assistant Medical; Visit Provider Physician Assistant Medical
DX: R53.83 Other fatigue (principal); R73.9 Hyperglycemia, unspecified
CPT/HCPCS: 80053; 83036; 84443; 85025

== ENCOUNTER 2022-03-29 00:48 | Outpatient (CLI) | payer MEDICARE, SELFPAY ==
--- NOTE | 2022-03-29 09:30 | DI.CT_ITS ---
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 TECHNIQUE: Imaging Protocol: Axial computed tomography images with coronal and sagittal reformatted images were created and reviewed COMPARISON: No exams were available for comparison FINDINGS: There are no skull fractures. There is no fluid in the visualized paranasal sinuses. There is no evidence of intracranial hemorrhage, mass effect, or shift of midline structures. There are no extra-axial fluid collections. The ventricles are not enlarged or shifted and there is no blo od within the ventricular system nor within the basal cisterns. No obvious abnormality in the cerebellar hemispheres nor within the mayi, midbrain, and thalami. The re is a a subtle area of hypodensity in the left parietal lobe (series 2/image 33) which may be signi ficant. Recommend follow-up MRI. Amount of involutional changes consistent with this patient's age. IMPRESSION: There is subtle area of hypodensity in the white matter of the left parietal lobe, possibly significa nt. Recommend follow-up MRI with diffusion imaging. RADIATION DOSE DELIVERED: 711.76mGy.cm Total DLP DATA REPOSITORY: All CT scans at this facility are submitted to the National Radiology Data Registry (NRDR) Dose Index Registry (DIR) with the [employer] (ACR). RADIATION OPTIMIZATION: All CT scans at this facility use at least one of these dose optimization te chniques: automated exposure control; mA and/or kV adjustment per patient size (includes targeted exa ms where dose is matched to clinical indication); or iterative reconstruction.
== END 2022-03-29 01:08 ==
LOC: DI 00:49
PROVIDERS: PCP Physician Assistant Medical; Visit Provider Physician Assistant Medical
DX: G43.109 Migraine with aura, not intractable, without status migrainosus (principal)
CPT/HCPCS: 70450

== ENCOUNTER 2022-04-23 01:48 | Outpatient (CLI) | payer MEDICARE, SELFPAY ==
--- NOTE | 2022-04-23 08:45 | DI.MRI_ITS ---
Exam(s) MR BRAIN WO EXAM: MR BRAIN WO CLINICAL HISTORY: ABNL CT SCAN, R94.02; OCULAR MIGRAINE, G43.109 TECHNIQUE: Multiplanar multisequence MRI of the brain was performed. COMPARISON: CT CT HEAD WO from 03/29/2022 FINDINGS: VENTRICLES AND EXTRA AXIAL SPACES: Normal in size and morphology for the patient's age. MIDLINE SHIFT: None. CEREBRAL PARENCHYMA: No focus of restricted diffusion to suggest acute infarct. No space-occupying le andrade identified. There are multiple foci of hyperintense signal seen in the white matter on the FLAIR and T2 weighted images. HEMORRHAGE: None. BRAINSTEM/CEREBELLUM: Normal. CALVARIUM: Normal. VISUALIZED PARANASAL SINUSES/MASTOIDS:Clear. TUNICA-BILOXI OF FISH: Normal flow void. PITUITARY GLAND: Unremarkable. OTHER FINDINGS: None. IMPRESSION: 1. No evidence of an acute territorial infarct. No abnormality to correspond to the finding seen on the CT scan from 03/29/2022. 2. Multiple hyperintense foci seen in the white matter on the FLAIR and T2 weighted images most consi stent with small vessel ischemic disease. DATA REPOSITORY:
== END 2022-04-23 02:08 ==
LOC: DI 01:50
PROVIDERS: PCP Physician Assistant Medical; Visit Provider Physician Assistant Medical
DX: G43.109 Migraine with aura, not intractable, without status migrainosus (principal); R94.02 Abnormal brain scan; I67.89 Other cerebrovascular disease
CPT/HCPCS: 70551

== ENCOUNTER → 2023-03-13 01:08 | Outpatient (CLI) | payer MEDICARE, SELFPAY ==
--- NOTE | 2023-03-13 11:13 | DI.RAD_ITS ---
Exam(s) XR SHOULDER RT COMPLETE 2+V EXAM: XR SHOULDER RT COMPLETE 2+V CLINICAL HISTORY: RT SHOULDER PAIN, M25.511. TECHNIQUE: 2D digital imaging was performed of the right shoulder. Five images were obtained. AP, Grashey, Y-view and axillary views were obtained. COMPARISON: No priors for comparison. FINDINGS: BONES: No acute fracture is present. No bony destructive lesion is seen. JOINTS: No dislocation present. The joint spaces are well maintained. SOFT TISSUE: The visualized lungs are clear. IMPRESSION: Unremarkable radiographs of the right shoulder. If there is concern for internal derangement, an MRI may be obtained for further evaluation. DATA REPOSITORY: RADIATION DOSE DELIVERED:
== END ==
PROVIDERS: PCP Physician Assistant Medical; Visit Provider Physician Assistant Medical
DX: M25.511 Pain in right shoulder (principal)
CPT/HCPCS: 73030

== ENCOUNTER 2023-04-17 14:22 | Outpatient (REF) | payer MEDICARE, SELFPAY ==
[2023-04-17 15:32] LABS: ALT 24 U/L (14-59); AST 18 U/L (15-37); Albumin 3.8 g/dL (3.4-5.0); Alkaline Phosphatase 60 U/L (46-116); BUN 14 mg/dL (7-18); Bilirubin, Total 0.4 mg/dL (0.2-1.0); CREATININE 0.7 mg/dL (0.55-1.02); Calcium 9.7 mg/dL (8.5-10.1); Calculated LDL 70 mg/dL (<100); Chloride 106 mmol/L (98-107); Cholesterol 156 mg/dL (<200); Estimated GFR 94.73 (mL/min/1.73m2); Glucose 91 mg/dL (74-106); HDL Cholesterol 77 mg/dL (40-60); Hemoglobin A1C 5.8 % (<5.7); Potassium 3.8 mmol/L (3.5-5.1); Sodium 143 mmol/L (136-145); Total Protein 6.7 g/dL (6.4-8.2); Triglyceride 47 mg/dL (<150)
== END 2023-04-17 14:23 | disposition home or self-care (01) ==
LOC: NCHCN 14:22
PROVIDERS: PCP Physician Assistant Medical; Visit Provider Physician Assistant Medical
DX: R73.03 Prediabetes (principal); R79.89 Other specified abnormal findings of blood chemistry
CPT/HCPCS: 80053; 80061; 83036

== ENCOUNTER 2023-06-14 16:00 | Outpatient (REF) | payer MEDICARE, SELFPAY ==
--- NOTE | 2023-06-14 15:00 | SKI_PTH ---
PATIENT: Soniya Sahu LOC: [facility] U#:[id number] AGE/SX: 67/F ROOM: RE06/14/[address]: ANDREW Chan : 1955 BED: DIS: 06/14/2023 SPEC #: [id number] RECD: 06/14/23 18:17 STATUS: ESTHER REQ #: [id number] CHIQUITA: 06/14/23 15:[address]: Jai Matta DEPT: Surgical Specimen RECD BY: Christine Sosa ENTERED: 06/14/23 18:17 SP TYPE: DANIEL LANE DR: Priti Walsh Tissues: 1 - SKIN BIOPSY(SHAVE/PUNCH) Procedures: SKIN LEVEL 4 Comments: [id number]
== END 2023-06-14 16:01 | disposition home or self-care (01) ==
LOC: LBN 16:00
PROVIDERS: PCP Physician Assistant Medical; Visit Provider Physician Assistant
DX: L98.9 Disorder of the skin and subcutaneous tissue, unspecified (principal); D49.2 Neoplasm of unspecified behavior of bone, soft tissue, and skin
CPT/HCPCS: 88305

== ENCOUNTER → 2023-08-13 09:13 | Outpatient (BNVA) | payer MEDICARE, SELFPAY | PROVIDERS: PCP Physician Assistant Medical; Referring Provider Physician Assistant Medical; Visit Provider Student in an Organized Health Care Education/Training Program | DX: M75.101 Unspecified rotator cuff tear or rupture of right shoulder, not specified as traumatic (principal) | CPT/HCPCS: 99203 ==

== ENCOUNTER → 2023-08-28 01:59 | Outpatient (CLI) | payer MEDICARE, SELFPAY ==
--- OUTSIDE RECORDS SUMMARY | 2023-08-28 02:01 | XMS_ITS | Encounter Summary ---
Author Organization [facility] Address [address] [place] [address] Care Team Providers Care Tipple Repairer Name Role Phone Unavailable Primary Care Provider Unavailabl e Encounter Details Date Type Department Care Team (Late st Contact Info) Description 05/15/2002 Results Only [facility] [address] [place] [address] Sarah Stevens, [facility] [address] [place], [place] [id number] Social History Tobacco Use Types Packs/Day Years Used Date Smoking Tobacco: Never Assessed Sex and Gender Information Value Date Recorded Sex Assigned at Not on file Gender Identity Not on file Sexual Orientation Not on file documented as of this encounter Plan of Treatment Not on file documented as of this encounter Procedures Procedure Name Priority Date/Time Associated Diagnosis Comments CYTOPATHOLOGY Routine 05/15/2002 0:00 EST documented in this encounter Results * CYTOPATHOLOGY (05/15/2002 0:00 EST) Pathology Report: CYTOPATHOLOGY REPORT Reports generated via electronic interface contain original data; however they are lacking the format of the original report. Caution should be taken when reading/interpreti ng unformatted reports. Name: ? SYLWIA FRANCE ? Accession #: ? [id number] : ? 1955 (Age: 46) ??F ?Collect Date: ? 05/15/2002 Location: ? [facility] ? Receive Date: ? 05/19/2002 Provider: ?SARAH STEVENS CASING TESTER Copy to: ? Specimen/Source: ?ThinPrep Pap Test, Cervix/Endocervix Last Menstrual Period: ? 05/10/02 ? SPECIMEN ADEQUACY ? Satisfactory for Evaluation - transformation zone component present GENERAL CATEGORIZATION ? Negative for Intraepithelial Lesion or Malignancy ? Document reviewed and electronically signed by: ? ALCIDES Kilgore(ASCP) ? Report Date: ??05/22/2002 09:48 End of Report KAYCEE VALENCIA 05/15/2002 05/19/2002 Sarah Stevens CASING TESTER PATHOLOGY ORDERABLES KAYCEE VALENCIA [address] [place] [address] documented in this encounter Visit Diagnoses Not on filedocumented in this encounter
--- OUTSIDE RECORDS SUMMARY | 2023-08-28 02:01 | XMS_ITS | Encounter Summary ---
Author Organization [facility] Address [facility] [place] [address] Care Team Providers Care Tube Fitter Name Role Phone Priti Walsh Primary Care Provider [phone]- [phone] Reason for Referral * Diagnostic Test (Routine) - Closed Specialty Diagnoses / Procedures Referred By Contac t Referred To Contact Diagnoses Abnormal cardiovascular stress test Procedures Echocardiogram Stress (Treadmill) Luis Gallardo MD [facility] [place] [address] [facility] [place] [address] Referral ID Status Reason Start Date Expiration Date V isits Requested Visits Authorized [id number] Closed Specialty Service Requested 08/13/2019 02/09/2020 1 1 Reason for Visit * Diagnostic Test (Routine) - Closed Specialty Diagnoses / Procedures Referred By Contac t Referred To Contact Diagnoses Abnormal cardiovascular stress test Procedures Echocardiogram Stress (Treadmill) Luis Gallardo MD [facility] [place] [address] [facility] [place] [address] Referral ID Status Reason Start Date Expiration Date V isits Requested Visits Authorized [id number] Closed Specialty Service Requested 08/13/2019 02/09/2020 1 1 Encounter Details Date Type Department Care Team (Latest Contact Info) Description 08/20/2019 12:40 PM EDT - 08/20/2019 11:59 PM EDT Hospital Encounter Non-Invasive [place] [id number] Luis Casillas MD [facility] [place] [address] Abnormal cardiovascular stress test Discharge Disposition: Home Social History Tobacco Use Types Packs/Day Years Used Date Smoking Tobacco: Former Cigarettes Q uit: 08/07/1999 Smokeless Tobacco: Never Sex and Gender Information Value Date Recorded Sex Assigned at Not on file Gender Identity Not on file Sexual Orientation Not on file documented as of this encounter Plan of Treatment Not on file documented as of this encounter Procedures Procedure Name Priority Date/Time Associated Diagnosis Comments STRESS ECHO W CONTRAST W LMTD SPEC DOPP COLOR DOPP Routine 08/20/2019 2:12 PM EDT Abnormal cardiovascular stress test documented in this encounter Results * STRESS ECHO W CONTRAST W LMTD SPEC DOPP COLOR DOPP (08/20/2019 2:12 PM EDT) EF 65 HEARTLAB SYSTEM Anatomical Region Laterality Modality Other 08/20/2019 Narrative 08/20/2019 2:46 PM EDT Procedure: ?Stress Echocardiogram Patient: ?EDILMA Barroso ? (Age): 1955(63y) Med Rec#: ? [id number] ?Sex: ?F ? [place] [facility]Ht / Wt: ??165(cm)/61(kg) Pt. Loc: ?Echo Lab ?BSA: ?1.67 Study Date: ?? 08/20/2019 ?Pt. Type: Tape: ? Referring: JULIO Referring: Luis Casillas ([id number]) Reading: Dayo Vera ([id number]) Fisheries Management Biologist: Maddie Liriano Diplomatic Officer: Rory Harris [facility] Diplomatic Officer 2: ApolloLynne Diagnosis: *Abnormal result of other cardiovascular function study (R94.39) Stage ? BP ?HR ? Rest ?148/96 ?68 ? Peak ?180/86 ?160 ? Recovery ?146/80 ?75 ? SUMMARY: 1. CLINICAL: ??Patient exercised on Johnny protocol for 7.75 mins, obtaining 9.7 METs. ??Baseline HR of 68 antony to 160 at peak stress, representing 101% MPHR. ??Resting BP of 148/96 antony to 180/86 at peak exertion. ??RPP of 28.8k. ??No chest pain reported; exercise stopped due to fatigue; no chest pain reported. 2. EKG: ??Baseline EKG demonstrates normal sinus rhythm without significant ST-TW aberration. ??[address]-D developed with exercise. ??No significant arrhythmias. 3. ECHO: ??Rest echocardiogram demonstrates normal global and regional function, with a visually estimated EF of 65%. ??At peak exertion, there is vigorous and equal recruitment of all jones. ??See remainder of report for additional findings. 4. CONCLUSION: ??Non-ischemic stress test on clinical, electrocardiographic, and echocardiographic parameters. Findings Rest: Study Quality: ? Adequate Left Ventricle: ? The left ventricle is probably normal in size. ?There is normal global left ventricular systolic function. ??Ejection fraction is estimated to be 65%. ?There are no left ventricular segmental wall motion abnormalities. Right Ventricle: ? The right ventricle is probably normal in size. ?Right ventricular global systolic function is normal. ?The estimated pulmonary artery systolic pressure is 29 mmHg. Plus RAP. Aortic Valve: ? The aortic valve is tricuspid. ?There is no evidence of aortic valve thickening. ?Systolic excursion of the aortic valve is normal. ?There is no evidence of aortic valve stenosis. ?There is a trace of aortic regurgitation present. Mitral Valve: ? The mitral valve leaflets appear normal. ?There is mild (1+/4+) mitral regurgitation present. Tricuspid Valve: ? The tricuspid valve leaflets are morphologically normal. ?There is mild to moderate (1-2+/4+) tricuspid regurgitation present. Pericardium: ? There is no pericardial effusion. Aorta: ? The ascending aorta is normal in size. Stress: ? EKG: normal sinus rhythm.w/ supraventricular runs (up to 4 beats). ?EKG: nondiagnostic ST-T changes. ?The patient's oxygen saturation was 100%. ?The patient is on no cardiac or blood pressure medications. Misc: ? Definity contrast (one 1.5 ml vial)was used to enhance endocardial definition. Excess contrast was discarded. ?Stress echo, limited spectral Doppler, color Doppler and ECG interpretation performed. Findings Peak: Predicted Values:The patient achieved a maximum heart rate of 160 which is 102% of the maximum predicted heart rate (157 beats/min). ??The target heart rate was achieved. Left Ventricle: ? Global left ventricular systolic function appears hyperdynamic. ?There are no left ventricular segmental wall motion abnormalities. Stress: ? Patient followed a Johnny protocol. ?The patient exercised into stage 3. ?The total exercise duration was:7:45 min:sec. ?The study was terminated because of fatigue. ?The patient experienced shortness of breath. ?The blood pressure response was normal. ?Exercise capacity was good. ?The patient achieved a level of 10 METS. ?There were frequent atrial premature contractions. ?There was ST segment depression noted. ?The electrocardiographic response was indeterminate for ischemia. Due to baseline ST-T abnormalities. ?EKG: sinus tachycardia. ?The patient's oxygen saturation was 97%. Findings Recovery: Stress: ? EKG: normal sinus rhythm. ?EKG: SVT non-sustained runs of SVT (longest was 12 beats). Chambers 2D ?Value ?Units (Range) ? Ascending Ao ?2.92 ? cm (2 - 3.5) ? Tricuspid Valve ?Value ?Units (Range) ? TR Vmax ? 2.69 ? m/sec ? TR peak gradient ?28.9 ? mmHg ? RVSP ?29 ? mmHg ? Wall Motion: Segment Name ?Rest ? Peak ? Base-Anteroseptal ?? Normal ? Normal ? Base-Anterior ? Normal ? Normal ? Base-Anterolateral ??Normal ? Normal ? Base-Posterolateral Normal ? Normal ? Base-Inferior ? Normal ? Normal ? Base-Inferoseptal ?? Normal ? Normal ? Mid-Anteroseptal ?Normal ? Normal ? Mid-Anterior ?Normal ? Normal ? Mid-Anterolateral ?? Normal ? Normal ? Mid-Posterolateral ??Normal ? Normal ? Mid-Inferior ?Normal ? Normal ? Mid-Inferoseptal ?Normal ? Normal ? [place]-Septal ? Normal ? Normal ? [place]-Anterior ? Normal ? Normal ? [place]-Lateral ?Normal ? Normal ? [place]-Inferior ? Normal ? Normal ? [place]-Tip ?Normal ? Normal ? This report has been electronically signed by: Dayo Vera MD ? 08/20/2019 14:45:26 Images reviewed and interpretation verified [facility] Cardiac Ultrasound Laboratory Procedure Note Dayo Vera MD - 08/20/2019 Procedure: Stress Echocardiogram Patient: EDILMA WALKER(Age): 1955(63y) Med Rec#: [id number] Sex: F [place] [facility] [place] Ht / Wt: 165(cm)/61(kg) Pt. Loc: Echo Lab BSA: 1.67 Study Date: 08/20/2019 Pt. Type: Tape: Referring: JULIO Referring: Luis Casillas ([id number]) Reading: Dayo Vera ([id number]) Fisheries Management Biologist: Maddie Liriano Diplomatic Officer: Rory Harris [facility] Diplomatic Officer 2: Friend, Lynne Diagnosis: *Abnormal result of other cardiovascular function study (R94.39) Stage BP HR Rest 148/96 68 Peak 180/86 160 Recovery 146/80 75 SUMMARY: 1. CLINICAL: Patient exercised on Johnny protocol for 7.75 mins, obtaining 9.7 METs. Baseline HR of 68 antony to 160 at peak stress, representing 101% MPHR. Resting BP of 148/96 antony to 180/86 at peak exertion. RPP of 28.8k. No chest pain reported; exercise stopped due to fatigue; no chest pain reported. 2. EKG: Baseline EKG demonstrates normal sinus rhythm without significant ST-TW aberration. [address]-D developed with exercise. No significant arrhythmias. 3. ECHO: Rest echocardiogram demonstrates normal global and regional function, with a visually estimated EF of 65%. At peak exertion, there is vigorous and equal recruitment of all jones. See remainder of report for additional findings. 4. CONCLUSION: Non-ischemic stress test on clinical, electrocardiographic, and echocardiographic parameters. Findings Rest: Study Quality: Adequate Left Ventricle: The left ventricle is probably normal in size. There is normal global left ventricular systolic function. Ejection fraction is estimated to be 65%. There are no left ventricular segmental wall motion abnormalities. Right Ventricle: The right ventricle is probably normal in size. Right ventricular global systolic function is normal. The estimated pulmonary artery systolic pressure is 29 mmHg. Plus RAP. Aortic Valve: The aortic valve is tricuspid. There is no evidence of aortic valve thickening. Systolic excursion of the aortic valve is normal. There is no evidence of aortic valve stenosis. There is a trace of aortic regurgitation present. Mitral Valve: The mitral valve leaflets appear normal. There is mild (1+/4+) mitral regurgitation present. Tricuspid Valve: The tricuspid valve leaflets are morphologically normal. There is mild to moderate (1-2+/4+) tricuspid regurgitation present. Pericardium: There is no pericardial effusion. Aorta: The ascending aorta is normal in size. Stress: EKG: normal sinus rhythm.w/ supraventricular runs (up to 4 beats). EKG: nondiagnostic ST-T changes. The patient's oxygen saturation was 100%. The patient is on no cardiac or blood pressure medications. Misc: Definity contrast (one 1.5 ml vial)was used to enhance endocardial definition. Excess contrast was discarded. Stress echo, limited spectral Doppler, color Doppler and ECG interpretation performed. Findings Peak: Predicted Values:The patient achieved a maximum heart rate of 160 which is 102% of the maximum predicted heart rate (157 beats/min). The target heart rate was achieved. Left Ventricle: Global left ventricular systolic function appears hyperdynamic. There are no left ventricular segmental wall motion abnormalities. Stress: Patient followed a Johnny protocol. The patient exercised into stage 3. The total exercise duration was:7:45 min:sec. The study was terminated because of fatigue. The patient experienced shortness of breath. The blood pressure response was normal. Exercise capacity was good. The patient achieved a level of 10 METS. There were frequent atrial premature contractions. There was ST segment depression noted. The electrocardiographic response was indeterminate for ischemia. Due to baseline ST-T abnormalities. EKG: sinus tachycardia. The patient's oxygen saturation was 97%. Findings Recovery: Stress: EKG: normal sinus rhythm. EKG: SVT non-sustained runs of SVT (longest was 12 beats). Chambers 2D Value Units (Range) Ascending Ao 2.92 cm (2 - 3.5) Tricuspid Valve Value Units (Range) TR Vmax 2.69 m/sec TR peak gradient 28.9 mmHg RVSP 29 mmHg Wall Motion: Segment Name Rest Peak Base-Anteroseptal Normal Normal Base-Anterior Normal Normal Base-Anterolateral Normal Normal Base-Posterolateral Normal Normal Base-Inferior Normal Normal Base-Inferoseptal Normal Normal Mid-Anteroseptal Normal Normal Mid-Anterior Normal Normal Mid-Anterolateral Normal Normal Mid-Posterolateral Normal Normal Mid-Inferior Normal Normal Mid-Inferoseptal Normal Normal [place]-Septal Normal Normal [place]-Anterior Normal Normal [place]-Lateral Normal Normal [place]-Inferior Normal Normal [place]-Tip Normal Normal This report has been electronically signed by: Dayo Vera MD 08/20/2019 14:45:26 Images reviewed and interpretation verified [facility] Cardiac Ultrasound [facility] Luis Casillas MD ECHO ORDERABLES documented in this encounter Visit Diagnoses Diagnosis Abnormal cardiovascular stress test Other nonspecific abnormal cardiovascular system function study documented in this encounter Administered Medications Inactive Administered Medications - up to 3 most recent administrations Medication Order MAR Action Action Date Dose Rate Site perflutren lipid microspheres (DEFINITY) injection 0.5 mL 0.5 mL, Intravenous, ONCE PRN, 1 dose, Starting on Loulou 08/20/19 at 1412, Until Louolu 08/20/19 at 1340, Other, for enhancement of sub-optimal echo images, Echo Lab (Intra-Procedure), Routine Given 08/20/2019 1:40 PM EDT 0.5 mLs documented in this encounter Care Teams Tube Fitter Relationship Specialty Start Date End Date Priti Walsh PA [address] [place] [address] PCP - General Family Medicine 08/07/19 09/29/19 documented as of this encounter
--- OUTSIDE RECORDS SUMMARY | 2023-08-28 02:01 | XMS_ITS | Encounter Summary ---
Author Organization [facility] [address] Care Team Providers Care Residential Door Installer Name Role Phone Priti Walsh Primary Care Provider +1- [phone] Encounter Details Date Type Department Care Team (Late st Contact Info) Description 08/20/2019 Telephone Non-[place]vasive [place] [phone] Luis Gallardo MD [facility] [place] [address] Social History Tobacco Use Types Packs/Day Years Used Date Smoking Tobacco: Former Cigarettes Q uit: 08/07/1999 Smokeless Tobacco: Never Sex and Gender Information Value Date Recorded Sex Assigned at Not on file Gender Identity Not on file Sexual Orientation Not on file documented as of this encounter Miscellaneous Notes * Telephone Encounter - Luis Gallardo - 08/20/2019 3:01 PM EDT Called Ms. Sahu to share the good news of her stress test today. She was relieved and her questions were answered. No need for further cardiac testing at this time or changes to her medication regimen. documented in this encounter Plan of Treatment Not on file documented as of this encounter Visit Diagnoses Not on filedocumented in this encounter Care Teams Residential Door Installer Relationship Specialty Start Date End Date Priti Walsh PA [address] [place], [place] [id number] PCP - General Family Medicine 08/07/19 09/29/19 documented as of this encounter
--- OUTSIDE RECORDS SUMMARY | 2023-08-28 02:01 | XMS_ITS | Clinical Summary ---
[facility] Address [facility] [place] [address] Care Team Providers Care Hide Measuring Machine Operator Name Role Phone Unknown Primary Care Provider Unavailabl e Allergies No known active allergies Medications No known medications Active Problems Problem Noted Date Diagnosed Date Chest pain 08/07/2019 Immunizations Name Administration Dates Next Due Influenza Trivalent w/Preservative 12/01/2013 Social History Tobacco Use Types Packs/Day Years Used Date Smoking Tobacco: Former Cigarettes Q uit: 08/07/1999 Smokeless Tobacco: Never Sex and Gender Information Value Date Recorded Sex Assigned at Not on file Gender Identity Not on file Sexual Orientation Not on file Last Filed Vital Signs Vital Sign Reading Time Taken Comments Blood Pressure 130/66 08/07/2019 12:45 PM EDT Pulse 72 08/07/2019 12:45 PM EDT Temperature - - Respiratory Rate - - Oxygen Saturation 100% 08/07/2019 12:45 PM EDT Inhaled Oxygen Concentration - - Weight 61.2 kg (135 lb) 08/07/2019 12:45 PM EDT Height 165.1 cm (5' 5) 08/07/2019 12:45 PM EDT Body Mass Index 22.47 08/07/2019 12:45 PM EDT Plan of Treatment Health Maintenance Due Date Last Done Comments CT Colonography 1955 Colonoscopy 1955 Colorectal Cancer Screening 1955 FIT DNA 1955 FIT 1955 Sigmoidoscopy (10 year) with FIT yearly 1955 Sigmoidoscopy 1955 Hepatitis C Screening 10/17/1973 Tdap adult 10/17/1974 Tetanus vaccine 10/17/1974 Breast Cancer Share Decision Needed 1995 Breast Cancer screening 1995 Zoster vaccine (1 of 2) 10/17/2005 Advance Directive 10/17/2010 Bone Density Scan 10/17/2020 Pneumoccocal Vaccine: 65+ (1 of 1 - PCV) 10/17/2020 Covid-19 Vaccine (1 - 2022-24 season) 2022 Influenza (Flu) vaccine (1 o f 1 - Influenza standard series) 10/13/2023 12/01/2013 Care Teams Hide Measuring Machine Operator Relationship Specialty Start Date End Date Unknown None PCP - General 09/30/19
--- OUTSIDE RECORDS SUMMARY | 2023-08-28 02:01 | XMS_ITS | Encounter Summary ---
Author Organization [facility] Address [address] [place] [address] Care Team Providers Care Triage Nurse Name Role Phone Unknown, Provider Primary Care Provider [phone] Encounter Details Date Type Department Care Team (Latest Contact Info) Description 11/21/2018 15:36 EDT - 11/21/2018 23:59 EDT Hospital Encounter [address] [address] Unknown, Provider, Discharge Disposition: Home or Self Care Social History Tobacco Use Types Packs/Day Years Used Date Smoking Tobacco: Never Assessed Sex and Gender Information Value Date Recorded Sex Assigned at Not on file Gender Identity Not on file Sexual Orientation Not on file documented as of this encounter Discharge Disposition Disposition Code Departure Means Destination Home or Self Custodial documented in this encounter Plan of Treatment Not on file documented as of this encounter Visit Diagnoses Not on filedocumented in this encounter Care Teams Triage Nurse Relationship Specialty Start Date End Date Unknown, Provider, PCP - General 12/21/14 documented as of this encounter
--- OUTSIDE RECORDS SUMMARY | 2023-08-28 02:01 | XMS_ITS | Encounter Summary ---
Author Organization [facility] Address [address] [place] [address] Care Team Providers Care Sr. Media Manager Name Role Phone Unavailable Primary Care Provider Unavailabl e Encounter Details Date Type Department Care Team (Late st Contact Info) Description 12/25/2005 Results Only [facility] - Maple conversion [address] [place] [address] Sarah Stevens, [place] [facility] [address] [place], [place] [address] Social History Tobacco Use Types Packs/Day Years Used Date Smoking Tobacco: Never Assessed Sex and Gender Information Value Date Recorded Sex Assigned at Not on file Gender Identity Not on file Sexual Orientation Not on file documented as of this encounter Plan of Treatment Not on file documented as of this encounter Procedures Procedure Name Priority Date/Time Associated Diagnosis Comments CYTOPATHOLOGY Routine 12/25/2005 0:00 EST documented in this encounter Results * CYTOPATHOLOGY (12/25/2005 0:00 EST) Pathology Report: CYTOPATHOLOGY REPORT Reports generated via electronic interface contain original data; however they are lacking the format of the original report. Caution should be taken when reading/interpreti ng unformatted reports. Name: ? SYLWIA FRANCE ? Accession #: ? [id number] : ? 1955 (Age: 50) ??F ?Collect Date: ? 12/25/2005 Location: ? [facility] ? Receive Date: ? 12/27/2005 Provider: ?SARAH STEVENS CORPORATE FITNESS PROGRAM COORDINATOR Copy to: ? Specimen/Source: ?ThinPrep Pap Test, Cervix/Endocervix, processed on OdojoPrep Imaging System, with manual evaluation Last Menstrual Period: ? 4 years ago ? SPECIMEN ADEQUACY ? Satisfactory for Evaluation - transformation zone component present - scant squamous epithelial component GENERAL CATEGORIZATION ? Negative for Intraepithelial Lesion or Malignancy ? Document reviewed and electronically signed by: ? ALCIDES Kilgore(ASCP) ? Report Date: ??01/04/2006 12:13 End of Report [facility] 12/25/2005 12/27/2005 Sarah Stevens CORPORATE FITNESS PROGRAM COORDINATOR PATHOLOGY ORDERABLES Performing Organization Address City/State/[facility] Co de Phone Number [facility] [address] [place] [address] documented in this encounter Visit Diagnoses Not on filedocumented in this encounter
--- OUTSIDE RECORDS SUMMARY | 2023-08-28 02:01 | XMS_ITS | Encounter Summary ---
Author Organization [facility] Address [address] [place] [address] Care Team Providers Care Miller Head Name Role Phone Unavailable Primary Care Provider Unavailabl e Encounter Details Date Type Department Care Team (Late st Contact Info) Description 06/15/2003 Results Only [facility] - Maple conversion [address] [place] [address] Sarah Stevens, [place] [facility] [address] [place], [place] [address] Social History Tobacco Use Types Packs/Day Years Used Date Smoking Tobacco: Never Assessed Sex and Gender Information Value Date Recorded Sex Assigned at Not on file Gender Identity Not on file Sexual Orientation Not on file documented as of this encounter Plan of Treatment Not on file documented as of this encounter Procedures Procedure Name Priority Date/Time Associated Diagnosis Comments CYTOPATHOLOGY Routine 06/15/2003 0:00 EDT documented in this encounter Results * CYTOPATHOLOGY (06/15/2003 0:00 EDT) Pathology Report: CYTOPATHOLOGY REPORT Reports generated via electronic interface contain original data; however they are lacking the format of the original report. Caution should be taken when reading/interpreti ng unformatted reports. Name: ? SYLWIA FRANCE ? Accession #: ? [id number] : ? 1955 (Age: 47) ??F ?Collect Date: ? 06/15/2003 Location: ? [facility] ? Receive Date: ? 06/17/2003 Provider: ?SARAH STEVENS TIRE REBUILDER Copy to: ? Specimen/Source: ?ThinPrep Pap Test, Cervix/Endocervix Last Menstrual Period: ? 1.5 yrs ? SPECIMEN ADEQUACY ? Satisfactory for Evaluation - transformation zone component present GENERAL CATEGORIZATION ? Negative for Intraepithelial Lesion or Malignancy ? Document reviewed and electronically signed by: ? Bob Galvan, CLIFF(ASCP) ? Report Date: ??06/22/2003 12:10 End of Report [facility] 06/15/2003 06/17/2003 Sarah Stevens TIRE REBUILDER PATHOLOGY ORDERABLES [facility] [address] [place] [address] documented in this encounter Visit Diagnoses Not on filedocumented in this encounter
--- OUTSIDE RECORDS SUMMARY | 2023-08-28 02:01 | XMS_ITS | Encounter Summary ---
Author Organization [facility] Address [address] [place] [address] Care Team Providers Care Exhibit Preparator Name Role Phone Unknown, Provider Primary Care Provider [phone] Encounter Details Date Type Department Care Team ([facility] st Contact Info) Description 11/21/2018 Results Only [facility] [phone] Isabella Linn MD [address] [place] [id number] Social History Tobacco Use Types Packs/Day Years Used Date Smoking Tobacco: Never Assessed Sex and Gender Information Value Date Recorded Sex Assigned at Not on file Gender Identity Not on file Sexual Orientation Not on file documented as of this encounter Plan of Treatment Not on file documented as of this encounter Procedures Procedure Name Priority Date/Time Associated Diagnosis Comments SURGICAL PATHOLOGY Routine 11/21/2018 22 :10 EDT documented in this encounter Results * SURGICAL PATHOLOGY (11/21/2018 22:10 EDT) Pathology Report: SURGICAL PATHOLOGY REPORT Reports generated via electronic interface contain original data; however they are lacking the format of the original report. Caution should be taken when reading/interpret ing unformatted reports. Name: ? SYLWIA FRANCE ? Accession #: ? [id number] ? : ? 1955 (Age: 63) ??F ? Collect Date: ? 11/21/2018 ? Location: ? [facility] ? Receive Date: ? 11/21/2018 ? Provider: ISABELLA LINN MD Copy to: TETE GREWAL PA-C ? Final Pathologic Diagnosis: ENDOMETRIUM: BIOPSY: - Short strips of inactive and atrophic endometrial glandular epithelium. - Fragments of benign endocervical glandular epithelium. Document reviewed and electronically signed by: Karl Young MD Report ??Date: 11/24/2018 11:04 By the signature above, the attending physician certifies that he/she has personally conducted a gross and/or microscopic examination of the described specimens and rendered or confirmed the above diagnosis. Specimen(s) Received: Endometrial biopsy Clinical History: Thickened endometrial stripe on ultrasound 11/06/18, 10 mm in a postmenopausal woman; LMP: 2001; fax results to Gross Description: ? Received in formalin labelled with proper patient identification (initials F, L) and endometrial BX is a scant aggregate of colindres tissue admixed with mucin (0.6 x 0.4 x less than 0.1 cm). Submitted entirely in 1. Specimen may not survive processing. Dr. Aragon 11/22/2018 11:00 AM End of Report [facility] 11/21/2018 22:1 0 EDT 11/21/2018 22:10 EDT Isabella Linn MD PATHOLOGY ORDERABLES [facility] [address] [place] [address] documented in this encounter Visit Diagnoses Not on filedocumented in this encounter Care Teams Exhibit Preparator Relationship Specialty Start Date End Date Unknown, Provider, PCP - General 12/21/14 documented as of this encounter
--- OUTSIDE RECORDS SUMMARY | 2023-08-28 02:01 | XMS_ITS | Encounter Summary ---
Author Organization [facility] Address [address] [place] [address] Care Team Providers Care Clinical Trial Head Name Role Phone Unavailable Primary Care Provider Unavailabl e Encounter Details Date Type Department Care Team (Late st Contact Info) Description 01/01/2000 Results Only [facility] - Maple conversion [address] [place] [address], [place] Social History Tobacco Use Types Packs/Day Years Used Date Smoking Tobacco: Never Assessed Sex and Gender Information Value Date Recorded Sex Assigned at Not on file Gender Identity Not on file Sexual Orientation Not on file documented as of this encounter Plan of Treatment Not on file documented as of this encounter Procedures Procedure Name Priority Date/Time Associated Diagnosis Comments SURGICAL PATHOLOGY Routine 01/01/2000 0:00 EST documented in this encounter Results * SURGICAL PATHOLOGY (01/01/2000 0:00 EST) Pathology Report: SURGICAL PATHOLOGY REPORT Reports generated via electronic interface contain original data; however they are lacking the format of the original report. Caution should be taken when reading/interpreti ng unformatted reports. Name: ? SYLWIA FRANCE ? Accession #: ? [id number] ? : ? 1955 (Age: 44) ??F ? Collect Date: ? 01/01/2000 ? Location: ? [facility] ? Receive Date: ? 01/02/2000 ? Provider: MEGHAN WAY NP Copy to: JOSSIE PADGETT MD ? Final Pathologic Diagnosis: ? Endometrium, biopsies: - Proliferative endometrium with simple hyperplasia, compatible with an anovulatory cycle. Document reviewed and electronically signed by: Alberto Garcia MD Report ??Date: 01/05/2000 16:29 By the signature above, the attending physician certifies that he/she has personally conducted a gross and/or microscopic examination of the described specimens and rendered or confirmed the above diagnosis. Specimen(s) Received: ? Endometrial bx Clinical History: ? DUB/menorrhagia; U/S showing homogenously thick endometrium @ 1.7 cm; LMP: 12/17/99 Gross Description: ? Received in formalin labelled Luis Alberto and endometrial bx are multiple pieces of colindres-red, soft pieces of tissue which measure in aggregate volume no greater than 1.5 cc' s. ??The tissue is submitted in its entirety in one cassette. ??(Dr. Hartman-)/[facility] End of Report [facility] 01/01/2000 01/02/2000 15: [address] NP PATHOLOGY ORDERABLES [facility] [address] [place] [address] documented in this encounter Visit Diagnoses Not on filedocumented in this encounter
--- OUTSIDE RECORDS SUMMARY | 2023-08-28 02:01 | XMS_ITS | Encounter Summary ---
Author Organization [facility] Address [address] [place] [address] Care Team Providers Care Artificial Teeth Inspector Name Role Phone Unknown, Provider Primary Care Provider [phone] Encounter Details Date Type Department Care Team (Late st Contact Info) Description 06/21/2015 Results Only [facility] [phone] Timur La MD [address] [facility] [address] [place] [id number] Social History Tobacco Use Types Packs/Day Years Used Date Smoking Tobacco: Never Assessed Sex and Gender Information Value Date Recorded Sex Assigned at Not on file Gender Identity Not on file Sexual Orientation Not on file documented as of this encounter Plan of Treatment Not on file documented as of this encounter Procedures Procedure Name Priority Date/Time Associated Diagnosis Comments SURGICAL PATHOLOGY Routine 06/21/2015 20 :43 EDT documented in this encounter Results * SURGICAL PATHOLOGY (06/21/2015 20:43 EDT) Pathology Report: SURGICAL PATHOLOGY REPORT Reports generated via electronic interface contain original data; however they are lacking the format of the original report. Caution should be taken when reading/interpret ing unformatted reports. Name: ? SYLWIA FRANCE ? Accession #: ? [id number] ? : ? 1955 (Age: 59) ??F ? Collect Date: ? 06/21/2015 ? Location: ? [facility] ? Receive Date: ? 06/22/2015 ? Provider: RAFY LA MD Copy to: ? Final Pathologic Diagnosis: A. DUODENUM, 2ND PORTION, BIOPSY: - ??Duodenal mucosa with no specific pathologic features. B. STOMACH, ANTRUM AND BODY, BIOPSY: - ??Gastric antral and body mucosa with no specific pathologic features. - ??Negative for H. pylori on HE stain. C. ESOPHAGUS, GE JUNCTION, BIOPSY: - ??Squamocolumnar junctional mucosa with features consistent with reflux esophagitis. - ??Negative for intestinal metaplasia or dysplasia. Document reviewed and electronically signed by: ALEJANDRA DIETZ MD Report ??Date: 06/23/2015 16:38 By the signature above, the attending physician certifies that he/she has personally conducted a gross and/or microscopic examination of the described specimens and rendered or confirmed the above diagnosis. Specimen(s) Received: A. ??2nd portion duodenum B. ??Antrum and body C. ??EGJ Clinical History: Abd pain; inflammation; clinical diagnosis code: R93.3 Gross Description: A. ?Received in formalin labelled with proper patient identification (initials F, L) and 2nd portion duodenum is a single pink-colindres tissue fragment (0.4 x 0.4 x 0.2 cm). Submitted intact in block A1. B. ?Received in formalin labelled with proper patient identification (initials F, L) and antrum and body are three pink-colindres tissues (0.2 x 0.2 x 0.2 cm to 0.3 x 0.2 x 0.2 cm). Entirely submitted in block B1. C. ?Received in formalin labelled with proper patient identification (initials F, L) and EGJ is a single pink-colindres tissue fragment (0.6 x 0.2 x 0.2 cm). Submitted intact in block C1. Rosibel Diaz 06/23/2015 9:19 AM End of Report [facility] 06/21/2015 20:4 3 EDT 06/22/2015 20:43 EDT Timur La MD PATHOLOGY ORDERABLES [facility] [address] [place] [address] documented in this encounter Visit Diagnoses Not on filedocumented in this encounter Care Teams Artificial Teeth Inspector Relationship Specialty Start Date End Date Unknown, Provider, PCP - General 12/21/14 documented as of this encounter
--- OUTSIDE RECORDS SUMMARY | 2023-08-28 02:01 | XMS_ITS | Encounter Summary ---
Author Organization [facility] Address [address] [place] [address] Care Team Providers Care Industrial Relations Analyst Name Role Phone Unknown, Provider Primary Care Provider Encounter Details Date Type Department Care Team (Latest Contact Info) Description 06/21/2015 9:12 EDT - 06/21/2015 23:59 EDT Hospital Encounter [address] [address] Unknown, Provider, Discharge Disposition: Home or Self Care Social History Tobacco Use Types Packs/Day Years Used Date Smoking Tobacco: Never Assessed Sex and Gender Information Value Date Recorded Sex Assigned at Not on file Gender Identity Not on file Sexual Orientation Not on file documented as of this encounter Discharge Disposition Disposition Code Departure Means Destination Home or Self [place] documented in this encounter Plan of Treatment Not on file documented as of this encounter Visit Diagnoses Not on filedocumented in this encounter Care Teams Industrial Relations Analyst Relationship Specialty Start Date End Date Unknown, Provider, PCP - General 12/21/14 documented as of this encounter
--- OUTSIDE RECORDS SUMMARY | 2023-08-28 02:01 | XMS_ITS | Encounter Summary ---
Author Organization [facility] Address [address] [place] [address] Care Team Providers Care Cloth Grader Supervisor Name Role Phone Unavailable Primary Care Provider Unavailabl e Encounter Details Date Type Department Care Team (Late st Contact Info) Description 11/10/2007 Before PRISM Converted Visit (Maple) [facility] - Maple conversion [address] [place] [address] Tete Walsh PA-C [address] [place] [address] Social History Tobacco Use Types Packs/Day Years Used Date Smoking Tobacco: Never Assessed Sex and Gender Information Value Date Recorded Sex Assigned at Not on file Gender Identity Not on file Sexual Orientation Not on file documented as of this encounter Plan of Treatment Not on file documented as of this encounter Procedures Procedure Name Priority Date/Time Associated Diagnosis Comments CYTOPATHOLOGY Routine 11/10/2007 0:00 EDT documented in this encounter Results * CYTOPATHOLOGY (11/10/2007 0:00 EDT) Pathology Report: CYTOPATHOLOGY REPORT ? Reports generated via electronic interface contain original data; ? however they are lacking the format of the original report. ? Caution should be taken when reading/interpreti ng unformatted reports. ? Name: ? SYLWIA FRANCE ? Accession #: ? [id number] ? : ? 1955 (Age: 52) ??F ?Collect Date: ? 11/10/2007 ? Location: ? [facility] ? Receive Date: ? 11/12/2007 ? Provider: ?TETE MORALES ? Copy to: ? Specimen/Source: ?Pap Test, Cervix/Endocervix, ThinPrep Imaging System ? with manual evaluation ? Last Menstrual Period: ? 2002 ? Other: ? HPVA - HPV testing requested if ASC-US on the current ThinPrep Pap test. ? SPECIMEN ADEQUACY ? Unsatisfactory for Evaluation, ? - insufficient numbers of squamous epithelial cells (less than 10% of expected ?? cellularity) ? GENERAL CATEGORIZATION ? Specimen processed and examined, but unsatisfactory for evaluation of ? epithelial abnormality. ? Recommend repeat Pap test or further follow up, as clinically indicated. ? Document reviewed and electronically signed by: ? Bob Galvan, [place](ASCP) ? Report Date: ??11/14/2007 07:44 ? End of Report ? [facility] 11/10/2007 11/12/2007 Tete Walsh PA-C PATHOLOGY ADAN DONOHUE [facility] [address] [place] [address] documented in this encounter Visit Diagnoses Not on filedocumented in this encounter
--- OUTSIDE RECORDS SUMMARY | 2023-08-28 02:01 | XMS_ITS | Encounter Summary ---
Author Organization [facility] Address [address] [place] [address] Care Team Providers Care Rehab Consultant Name Role Phone Unknown, Provider Primary Care Provider Encounter Details Date Type Department Care Team (Late st Contact Info) Description 06/14/2023 Lab Requisition [facility] Pathology & Laboratory Medicine - [facility] [address] [place] [address] Jai Matta, [address] [place] [phone] Neoplasm of unspecified behavior of bone, soft tissue, and skin Social History Tobacco Use Types Packs/Day Years Used Date Smoking Tobacco: Never Assessed Interpersonal Safety Answer Date Record ed Physically Hurt Never 09/13/2019 Verbally Threaten Not on file 09/13/2019 Sex and Gender Information Value Date Recorded Sex Assigned at Not on file Gender Identity Not on file Sexual Orientation Not on file documented as of this encounter Plan of Treatment Not on file documented as of this encounter Procedures Procedure Name Priority Date/Time Associated Diagnosis Comments SURGICAL PATHOLOGY Today 06/14/2023 15 :00 EDT Neoplasm of unspecified behavior of bone, soft tissue, and skin documented in this encounter Results * SURGICAL PATHOLOGY (06/14/2023 15:00 EDT) Note to Patient The following pathology results have been interpreted by your pathologist and may be available to you before your health provider has had the opportunity to review them. Please allow time for your provider to receive these results and explore management options, if applicable. 06/18/2023 9:29 EDT [facility] Final Diagnosis A. SKIN OF CHEST, RIGHT UPPER, SHAVE BIOPSY: - Seborrheic keratosis, inflamed. 06/18/2023 9:29 [facility] Attestation By the signature below, the attending physician certifies that they have 1) personally conducted a gross and/or microscopic examination of the described specimen(s), and/or personally interpreted the results of laboratory testing of the described specimen(s), and 2) personally rendered or confirmed the above diagnosis. 06/18/2023 9:29 [facility] at 0929 Clinical History Abnormal skin growth; clinical diagnosis code: D49.2 06/18/2023 9:29 [facility] Gross Description A. Received in formalin labelled with proper patient identification (initials F, L) and R upper chest is a shave biopsy of colindres-white skin (1.1 x 0.9 x 0.1 cm). On the central skin surface there is an ovoid dark brown macule (0.4 x 0.3 cm) with surrounding scattered light colindres-brown speckles of pigmentation. The specimen is inked, trisected and submitted entirely in A1. ANDREW LITTLE(ASCP) 06/17/2023 9:39 06/18/2023 9:29 EDT [facility] Performing Lab [facility] 06/18/2023 9:29 T [facility] Scanned Images 06/18/2023 9:29 T [facility] Tissue SPECIMEN FROM SKIN / Unknown 06/14/2023 15:00 EDT 06/14/2023 21:56 EDT Jai MORALES PATHOLOGY ORDERABL ES [facility] [address] [place] [address] documented in this encounter Visit Diagnoses Diagnosis Neoplasm of unspecified behavior of bone, soft tissue, and skin documented in this encounter Care Teams Rehab Consultant Relationship Specialty Start Date End Date Unknown, Provider, PCP - General 12/21/14 documented as of this encounter
--- OUTSIDE RECORDS SUMMARY | 2023-08-28 02:01 | XMS_ITS | Encounter Summary ---
[place] [address] Care Team Providers Care Industrial Sweeper Cleaner Name Role Phone Priti Walsh Primary Care Provider +1- [phone] Encounter Details Date Type Department Care Team (Late st Contact Info) Description 08/07/2019 Telephone Cardiology at [address] [address] Aurora Melara RN Social History Tobacco Use Types Packs/Day Years Used Date Smoking Tobacco: Former Cigarettes Q uit: 08/07/1999 Smokeless Tobacco: Never Sex and Gender Information Value Date Recorded Sex Assigned at Not on file Gender Identity Not on file Sexual Orientation Not on file documented as of this encounter Plan of Treatment Not on file documented as of this encounter Visit Diagnoses Diagnosis Chest pain, unspecified type documented in this encounter Care Teams Industrial Sweeper Cleaner Relationship Specialty Start Date End Date Priti Walsh PA [address] [place] [address] PCP - General Family Medicine 08/07/19 09/29/19 documented as of this encounter
--- OUTSIDE RECORDS SUMMARY | 2023-08-28 02:01 | XMS_ITS | Referral Summary ---
Author Organization [facility] Address [address] [place] [address] Care Team Providers Care Environmental Programs Manager Name Role Phone Unknown, Provider Primary Care Provider Encounters Date Type Department Care Team Description 06/14/2023 Lab Requisition [facility] Pathology & Laboratory Medicine - [facility] [address] [place] [address] Jai Matta PA Neoplasm of unspecified behavior of bone, soft tissue, and skin from Last 3 Months Social History Tobacco Use Types Packs/Day Years Used Date Smoking Tobacco: Never Assessed Interpersonal Safety Answer Date Record ed Physically Hurt Never 09/13/2019 Verbally Threaten Not on file 09/13/2019 Sex and Gender Information Value Date Recorded Sex Assigned at Not on file Gender Identity Not on file Sexual Orientation Not on file Plan of Treatment Not on file Procedures Procedure Name Priority Date/Time Associated Diagnosis Comments SURGICAL PATHOLOGY Today 06/14/2023 15 :00 EDT Neoplasm of unspecified behavior of bone, soft tissue, and skin from Last 3 Months Results * SURGICAL PATHOLOGY (06/14/2023 15:00 EDT) Note to Patient The following pathology results have been interpreted by your pathologist and may be available to you before your health provider has had the opportunity to review them. Please allow time for your provider to receive these results and explore management options, if applicable. 06/18/2023 9:29 EDT [facility] Final Diagnosis A. SKIN OF CHEST, RIGHT UPPER, SHAVE BIOPSY: - Seborrheic keratosis, inflamed. 06/18/2023 9:29 [facility] Attestation By the signature below, the attending physician certifies that they have 1) personally conducted a gross and/or microscopic examination of the described specimen(s), and/or personally interpreted the results of laboratory testing of the described specimen(s), and 2) personally rendered or confirmed the above diagnosis. 06/18/2023 9:29 [facility] at 0929 Clinical History Abnormal skin growth; clinical diagnosis code: D49.2 06/18/2023 9:29 [facility] Gross Description A. [...] A1. ANDREW LITTLE(ASCP) 06/17/2023 9:39 06/18/2023 9:29 [facility] Performing Lab [facility] 06/18/2023 9:29 [facility] Scanned Images 06/18/2023 9:29 [facility] Tissue SPECIMEN FROM SKIN / Unknown 06/14/2023 15:00 EDT 06/14/2023 21:56 EDT Jai MORALES PATHOLOGY ORDERABL ES [facility] [address] [place] [address] from Last 3 Months Care Teams Environmental Programs Manager Relationship Specialty Start Date End Date Unknown, MD Sharad PCP - General 12/21/14
--- OUTSIDE RECORDS SUMMARY | 2023-08-28 02:01 | XMS_ITS | Clinical Summary ---
Author Organization [facility] Address [address] [place] [address] Care Team Providers Care Employee Relations Consultant Name Role Phone Unknown, Provider Primary Care Provider Encounters Date Type Department Care Team Description 06/14/2023 Lab Requisition [facility] Pathology [facility] - [facility] [address] [place] [address] Jai Matta PA Neoplasm of unspecified behavior [...] Orientation Not on file Plan of Treatment Health Maintenance Due Date Last Done Comments Hepatitis C Screen 1955 RSV Immunization ( o r 60+ Years) (1 - 1-dose 60+ series) 2015 Fall Risk Screening 10/17/2020 COVID-19 Vaccine ( season) 2022 Procedures Procedure Name Priority Date/Time Associated Diagnosis [...] explore management options, if applicable. 06/18/2023 9:29 [facility] Final Diagnosis A. SKIN OF CHEST, RIGHT UPPER, SHAVE BIOPSY: - Seborrheic keratosis, inflamed. 06/18/2023 9:29 [facility] Attestation By the signature below, the attending physician certifies that they have 1) personally conducted a gross and/or microscopic examination of the described specimen(s), and/or personally interpreted the results of laboratory testing of the described specimen(s), and 2) personally rendered or confirmed the above diagnosis. 06/18/2023 9:29 [facility] at 0929 Clinical History Abnormal skin growth; clinical diagnosis code: D49.2 06/18/2023 9:29 [facility] Gross Description A. Received in [...] ANDREW LITTLE(ASCP) 06/17/2023 9:39 06/18/2023 9:29 EDT [facility] Performing Lab [facility] 06/18/2023 9:29 [facility] Scanned Images 06/18/2023 9:29 [facility] Tissue SPECIMEN FROM SKIN / Unknown 06/14/2023 15:00 EDT 06/14/2023 21:56 EDT Jai MORALES PATHOLOGY ORDERABL ES [facility] [address] [place] [phone] from Last 3 Months Care Teams Employee Relations Consultant Relationship Specialty Start Date End Date Unknown, Provider, PCP - General 12/21/14
--- OUTSIDE RECORDS SUMMARY | 2023-08-28 02:01 | XMS_ITS | Encounter Summary ---
Author Organization [facility] Address [facility] [place] [address] Care Team Providers Care Compensation Intern Name Role Phone Priti Walsh Primary Care Provider +1- [phone] Reason for Referral * Diagnostic Test (Routine) - Closed Specialty Diagnoses / Procedures Referred By Verónica bender Referred To Contact Diagnoses Abnormal cardiovascular stress test Procedures Echocardiogram Stress (Treadmill) Luis Gallardo MD [facility] [place] [address] [facility] [place] [address] Referral ID Status Reason Start Date Expiration Date V isits Requested Visits Authorized [id number] Closed Specialty Service Requested 08/13/2019 02/09/2020 1 1 Reason for Visit * Consultation (VIRGIE) - Closed Specialty Diagnoses / Procedures Referred By Contkarmen t Referred To Contact Cardiology Diagnoses chest pain, abnormal stress test Priti Walsh PA [address] [place] [address] [facility] [address] [address] [place] [id number] Referral ID Status Reason Start Date Expiration Date Visits Re quested Visits Authorized [id number] Closed 08/04/2019 08/03/2020 1 1 Encounter Details Date Type Department Care Team (Late st Contact Info) Description 08/07/2019 1:00 PM EDT Office Visit Cardiology at [address] [phone] Christopher Casillas MD [facility] [place] [address] Luis Gallardo MD [facility] [place] [address] Abnormal cardiovascular stress test (Primary Dx); Chest pain, unspecified type; Palpitations Social History Tobacco Use Types Packs/Day Years Used Date Smoking Tobacco: Former Cigarettes Q uit: 08/07/1999 Smokeless Tobacco: Never Sex and Gender Information Value Date Recorded Sex Assigned at Not on file Gender Identity Not on file Sexual Orientation Not on file documented as of this encounter Last Filed Vital Signs Vital Sign Reading [...] Mass Index 22.47 08/07/2019 12:45 PM EDT documented in this encounter Progress Notes * Luis Gallardo - 08/07/2019 1:00 PM EDT Images from the original note were not included. [facility] [place] [phone] CARDIOLOGY OUTPATIENT NOTE PRIMARY CARE PROVIDER: ANDREW Huffman REFERRING PROVIDER: Priti Walsh Subjective: History of Present Illness: Ms. Sahu is a 63 year old woman with a history of arthritis, GERD, irritable bowel who presents to cardiology for an evaluation of chest pain. ED visit 07/24 for chest pain with negative troponin and no EKG changes, she left AMA after it was recommended that she stay for observation. Notably the chest pain seemed to respond to nitroglycerine. Other diagnostics showed a negative CTA for ischemia. She later underwent an exercise stress test which revealed 1.5 mm of horizontal STD in the inferior leads. She is referred to cardiology for further evaluation. She reports that she had chest pain/back pain and left arm pain while in the car. It came back the next day so she presented to the ED and received the above work-up. She continues to get the pain often when she drives and also has some perceived weakness of her left upper extremity. The pain bothers her most currently when she drives or is in certain positions. She has not had light headedness, dizziness, nausea, vomiting, sweating or dyspnea associated with the symptoms. She has the symptoms even now. She also reports intermittent palpitations which last a matter of seconds and can come and go any time with no provocation. Her most strenuous activity is going up a flight of stairs from her cellar which makes her a littlebit short of breath. No flowsheet data found. Review of Systems Constitutional: Negative for anorexia, diaphoresis, fever, weight loss, malaise/fatigue and chills. Respiratory: Positive for chest discomfort. Negative for cough, shortness of breath, PND and orthopnea. Genitourinary: Negative. Gastrointestinal: Negative. Negative for abdominal discomfort, vomiting and nausea. HENT: Negative. Psychiatric/Behavioral: Positive for physiological symptoms of anxiety. Hematologic/Lymphatic: Negative. Allergic/Immunologic: Negative. Musculoskeletal: Negative. Endocrine: Negative. Cardiovascular: Positive for palpitations. Negative for near-syncope, syncope and leg edema. Neurological: Negative. Skin: Negative. Past Medical History: No past medical history on file. Past Surgical History: No past surgical history on file. Family history (cardiac): Father: No heart disease Mother: Congestive heart failure Grandmother: Angina Uncles: Angina Social history: 20 years since quitting tobacco Retired Cleans No alcohol use No MJ No current outpatient medications on file. No current facility-administered medications for this visit. Objective: Physical Exam General: AOx3, no acute dstress HEENT: PERRL, EOMI, MMM Cardiac: RRR, I/ systolic murmur at L sternal border, no carotid bruits Pulm: CTAB Abd: soft, nontender LE: No significant LE edema Vasc: 2+ PT and DP pulses BL MSK: + Empty can sign, tenderness over the R biceps tendon, pain provoked with internal rotation and abduction of humerus (static resisted) Most Recent Vitals: 08/07/19 1245 BP: 130/66 Pulse: 72 SpO2: 100% Recent Results (from the past 72 hour(s)) EKG 12 Lead Result Value Ventricular rate 64 Atrial Rate 64 P-R Interval 110 QRS Duration 90 Q-T Interval 382 QTC Calculated (Bezet) 394 Calculated P [place] 69 Calculated R [place] 73 Calculated T [place] 65 INTERPRETATION Sinus rhythm with short LA Otherwise normal ECG No previous ECGs available Results: 07/2019: Exercise EKG Stress Test HR 66-->167 11 METs 1.5 mm horizontal STD in II, III, aVF No symptoms of ischemia Test stopped due to fatigue PVCs were noted during recovery Labs reviewed. Cholesterol profile: Cholesterol 152 TG 77 HDL 76 LDL 61 ASCVD risk score 3.3% Assessment and Plan: Ms. Sahu is a 63 year old woman with a history of arthritis, GERD, irritable bowel who presents to cardiology for an evaluation of chest pain. The cause of her back, chest and arm pain is not cardiac in nature as she has numerous physical exam signs of rotator cuff and biceps tendonitis which may be from repetitive stress injuries (provokedby driving and certain movements). She was counseled regarding the course of healing and counseled to avoid provoking activities. Her abnormal exercise EKG stress test either represents a false positive or the identification of asymptomatic CAD. Recommend an exercise stress echo to rule out CAD - if CAD is detected would recommend medical therapy. Her palpitations are likely related to PVCs which were identified on the stress test. She reports that the rare palpitations are not so bad that she would want to take medications for them. #Abnormal stress test -Exercise stress echo -Consideration for medical therapy if positive for ischemia #Palpitations -Offered a ziopatch, but she declined as her symptoms are not bothersome and she would not want to take medications -It is conceivable that she could have intermittent bursts of AF, but her [id number] would be zero so will continue to follow #Rotator cuff tendonitis, biceps tendonitis -Counseled regarding the healing course of repetitive stress and tendon injuries Encouraged healthy lifestyle. Shared her ASCVD risk score of 3.3%. Luis Gallardo MD Media Assistant PGY-4 08/07/19 Greater than 50% of this 60 minute face to face office visit was spent in counseling and coordination of care for the patient. CARDIOLOGY STAFF NOTE I have personally interviewed and examined the patient and reviewed appropriate data, including labs, ECGs and other diagnostic studies. I agree with the principal findings documented above. The assessment and plan were formulated in discussion with me. Christopher Casillas MD, [facility], [facility] Staff Decorator Mannequin program director group work and Medical Education pager [phone] documented in this encounter Miscellaneous Notes * Addendum Note - Christopher Casillas MD - 08/07/2019 1:00 PM EDTAddended by: CHRISTOPHER CASILLAS on: 08/09/2019 02:40 PM Modules accepted: Level of Service documented in this encounter Plan of Treatment Not on file documented as of this encounter Procedures Procedure Name Priority Date/Time Associated Diagnosis Comments EKG 12-LEAD Routine 08/07/2019 12:59 PM EDT Chest pain, unspecified type documented in this encounter Results * STRESS ECHO W CONTRAST W LMTD SPEC DOPP COLOR DOPP (08/20/2019 2:12 PM EDT) EF 65 HEARTLAB SYSTEM Anatomical Region Laterality Modality Other 08/20/2019 Narrative 08/20/2019 2:46 PM EDT Procedure: ?Stress Echocardiogram Patient: ?EDILMATOM Barroso ? (Age): 1955(63y) Med Rec#: ? [id number] ?Sex: ?F ? Site Loc: ? [facility] ?Ht / Wt: ??165(cm)/61(kg) Pt. Loc: ?Echo Lab ?BSA: ?1.67 Study Date: ?? 08/20/2019 ?Pt. Type: Tape: ? Referring: JULIO Referring: Christopher Casillas ([id number]) Reading: Dayo Vera ([id number]) Court Bailiff: Maddie Liriano Hydraulic Jack Adjuster: Rory Harris [facility] Hydraulic Jack Adjuster 2: Lynne Bustillos Diagnosis: *Abnormal result of other cardiovascular function [...] Normal ? Mid-Inferoseptal ?Normal ? Normal ? Dennis-Septal ? Normal ? Normal ? Dennis-Anterior ? Normal ? Normal ? Dennis-Lateral ?Normal ? Normal ? Dennis-Inferior ? Normal ? Normal ? Dennis-Tip ?Normal ? Normal ? This report has been electronically signed by: Dayo Vera MD ? 08/20/2019 14:45:26 Images reviewed and interpretation verified [facility] Procedure Note Dayo Vera MD - 08/20/2019 Procedure: Stress Echocardiogram Patient: EDILMA WALKER(Age): 1955(63y) Med Rec#: [id number] Sex: F Site Loc: [facility] Ht / Wt: 165(cm)/61(kg) Pt. Loc: Echo Lab BSA: 1.67 Study Date: 08/20/2019 Pt. Type: Tape: Referring: KATERINAJEREMY Referring: Christopher Casillas ([id number]) Reading: Dayo Vera ([id number]) Court Bailiff: Maddie Liriano Hydraulic Jack Adjuster: Rory Harris [facility] Hydraulic Jack Adjuster 2: Friend, Lynne Diagnosis: *Abnormal result of [...] Normal Mid-Inferior Normal Normal Mid-Inferoseptal Normal Normal Dennis-Septal Normal Normal Dennis-Anterior Normal Normal Dennis-Lateral Normal Normal Dennis-Inferior Normal Normal Dennis-Tip Normal Normal This report has been electronically signed by: Dayo Vera MD 08/20/2019 14:45:26 Images reviewed and interpretation verified [facility] Christopher Casillas MD ECHO ORDERABLES * EKG 12 Lead (08/07/2019 12:59 PM EDT) Ventricular rate 64 BPM MUSE SYSTEM Atrial Rate 64 BPM MUSE SYSTEM P-R Interval 110 ms MUSE SYSTEM QRS Duration 90 ms MUSE SYSTEM Q-T Interval 382 ms MUSE SYSTEM QTC Calculated (Bezet) 394 ms MUSE SYSTEM Calculated P [place] 69 degrees MUSE SYSTEM Calculated R [place] 73 degrees MUSE SYSTEM Calculated T [place] 65 degrees MUSE SYSTEM INTERPRETATION Sinus rhythm with short LA Otherwise normal ECG No previous ECGs available Confirmed by MD Vera Daniel ([id number]) on 08/08/2019 3:40:53 PM MUSE SYSTEM 08/07/2019 12:5 9 PM EDT 08/08/2019 3:40 PM EDT Christopher Casillas MD ECG ORDERABLES MUSE SYSTEM documented in this encounter Visit Diagnoses Diagnosis Abnormal cardiovascular stress test- Primary Other nonspecific abnormal cardiovascular system function study Chest pain, unspecified type Palpitations Abnormal cardiovascular stress test Other nonspecific abnormal cardiovascular system function study documented in this encounter Care Teams Compensation Intern Relationship Specialty Start Date End Date Priti Walsh PA [address] [place] [address] PCP - General Family Medicine 08/07/19 09/29/19 documented as of this encounter
--- NOTE | 2023-08-28 07:00 | DI.MRI_ITS ---
Exam(s) MR UPPER JOINT RT WO EXAM: MR UPPER JOINT RT WO CLINICAL HISTORY: R SHOULDER PAIN,rt rotator cuff tear,m75.101. TECHNIQUE: Multiplanar multisequence MRI was performed. COMPARISON: None. FINDINGS: BONES: There is no fracture or contusion pattern. Degenerative cyst in glenoid. JOINTS:The acromioclavicular joint shows mild spurring. The glenohumeral joint shows a moderate effu andrade. TENDONS: Supraspinatus: Abnormal thickening. Full-thickness tear with retraction proximally 10 millimeters. Infraspinatus: Unremarkable. Subscapularis: Unremarkable. Teres Minor: Unremarkable. Biceps and [place]: Unremarkable. MUSCLES: Unremarkable. No significant atrophy. GLENOID LABRUM: Unremarkable on this noncontrast examination. SOFT TISSUES: Unremarkable. OTHER: Subacromial and subdeltoid bursae shows fluid. Fluid also in subcoracoid bursa.. IMPRESSION: Full-thickness tear with retraction of the supraspinatus tendon. DATA REPOSITORY:
== END ==
PROVIDERS: PCP Physician Assistant Medical; Visit Provider Student in an Organized Health Care Education/Training Program
DX: M25.511 Pain in right shoulder (principal); M25.411 Effusion, right shoulder; M75.101 Unspecified rotator cuff tear or rupture of right shoulder, not specified as traumatic; S46.891A Other injury of other muscles, fascia and tendons at shoulder and upper arm level, right arm, initial encounter
CPT/HCPCS: 73221

== ENCOUNTER → 2023-09-04 08:47 | Outpatient (BNVA) | payer MEDICARE, SELFPAY | PROVIDERS: PCP Physician Assistant Medical; Referring Provider Physician Assistant Medical; Visit Provider Student in an Organized Health Care Education/Training Program | DX: M75.101 Unspecified rotator cuff tear or rupture of right shoulder, not specified as traumatic (principal); M75.21 Bicipital tendinitis, right shoulder; M65.342 Trigger finger, left ring finger | CPT/HCPCS: 99215 ==

== ENCOUNTER 2023-09-26 06:05 | Day surgery (SDC) | payer MEDICARE, SELFPAY ==
--- OUTSIDE RECORDS SUMMARY | 2023-09-26 06:09 | XMS_ITS | Encounter Summary ---
Author Organization [facility] Address [address] [place] [address] Care Team Providers Care Renewals Manager Name Role Phone Unavailable Primary Care Provider Unavailabl e Encounter Details Date Type Department Care Team (Late st Contact Info) Description 12/25/2005 Results Only [facility] [address] [place] [address] Sarah Stevens, [facility] [address] [place], [place] [address] Social History Tobacco Use Types Packs/Day Years [...] ? SYLWIA FRANCE ? Accession #: ? [id number] : ? 1955 (Age: 50) ??F ?Collect Date: ? 12/25/2005 Location: ? [facility] ? Receive Date: ? 12/27/2005 Provider: ?SARAH STEVENS PARTS CONSULTANT Copy to: ? Specimen/Source: ?ThinPrep Pap Test, Cervix/Endocervix, processed on [employer] Imaging System, with manual evaluation Last Menstrual Period: ? 4 years ago ? SPECIMEN ADEQUACY ? Satisfactory for Evaluation - transformation zone component present - scant squamous epithelial component GENERAL CATEGORIZATION ? Negative for Intraepithelial Lesion or Malignancy ? Document reviewed and electronically signed by: ? ALCIDES Kilgore(ASCP) ? Report Date: ??01/04/2006 12:13 End of Report KAYCEE VALENCIA 12/25/2005 12/27/2005 Sarah Stevens PARTS CONSULTANT PATHOLOGY ORDERABLES Performing Organization Address City/State/[facility] Co de Phone Number KAYCEE VALENCIA [address] [place] [address] documented in this encounter Visit Diagnoses Not on filedocumented in this encounter
--- OUTSIDE RECORDS SUMMARY | 2023-09-26 06:09 | XMS_ITS | Encounter Summary ---
Author Organization [facility] Address [facility] [place] [address] Care Team Providers Care Marketing Operations Coordinator Name Role Phone Priti Walsh Primary Care Provider +1- [phone] Reason for Referral * Diagnostic Test (Routine) - Closed Specialty Diagnoses / Procedures Referred By Verónica bender Referred To Contact Diagnoses Abnormal cardiovascular stress test Procedures Echocardiogram Stress (Treadmill) Luis Gallardo MD [facility] [place] [address] [facility] [place] [address] Referral ID Status Reason Start Date Expiration Date V isits Requested Visits Authorized [id number] Closed Specialty Service Requested 08/13/2019 02/09/2020 1 1 Reason for Visit * Consultation (VIRGIE) - Closed Specialty Diagnoses / Procedures Referred By Contkarmen t Referred To Contact Cardiology Diagnoses chest pain, abnormal stress test Priti Walsh PA [address] [place] [address] [facility] [address] [place] [phone] Referral ID Status Reason Start Date Expiration Date Visits Re quested Visits Authorized [id number] Closed 08/04/2019 08/03/2020 1 1 Encounter Details Date Type Department Care Team (Late st Contact Info) Description 08/07/2019 1:00 PM EDT Office Visit Cardiology at [address] [place] [address] Christopher Casillas MD [facility] [place] [address] Luis Gallardo MD [facility] [place] [address] Abnormal cardiovascular stress test (Primary Dx); Chest [...] from the original note were not included. [facility] [place] [address] CARDIOLOGY OUTPATIENT NOTE PRIMARY CARE PROVIDER: ANDREW [...] 382 QTC Calculated (Bezet) 394 Calculated P [place] 69 Calculated R [place] 73 Calculated T [place] 65 INTERPRETATION Sinus rhythm with short OK Otherwise normal ECG No previous ECGs available [...] have intermittent bursts of AF, but her [id number] would be zero so will continue to follow #Rotator cuff tendonitis, biceps tendonitis -Counseled regarding the healing course of repetitive stress and tendon injuries Encouraged healthy lifestyle. Shared her ASCVD risk score of 3.3%. Luis Gallardo MD Business Developer PGY-4 08/07/19 Greater than 50% of this [...] in discussion with me. Christopher Casillas MD, [facility], [facility] Staff Hydroblaster paper cup machine operator and Medical Education pager [phone] documented in this encounter Miscellaneous Notes * [...] Barroso ? (Age): 1955(63y) Med Rec#: ? [id number] ?Sex: ?F ? [place] Loc: ? [facility] [place]Ht / Wt: ??165(cm)/61(kg) Pt. Loc: ?Echo Lab ?BSA: ?1.67 Study Date: ?? 08/20/2019 ?Pt. Type: Tape: ? Referring: JULIO Referring: Christopher Casillas ([id number]) Reading: Dayo Vera ([id number]) Alcoholism Worker: Maddie Liriano Note Taker: Rory Harris [facility] Note Taker 2: Lynne Bustillos Diagnosis: *Abnormal result of [...] Normal ? Mid-Inferoseptal ?Normal ? Normal ? [place]-Septal ? Normal ? Normal ? [place]-Anterior ? Normal ? Normal ? [place]-Lateral ?Normal ? Normal ? [place]-Inferior ? Normal ? Normal ? [place]-Tip ?Normal ? Normal ? This report has been electronically signed by: Dayo Vera MD ? 08/20/2019 14:45:26 Images reviewed and interpretation verified [facility] Cardiac Ultrasound Laboratory Procedure Note Dayo Vera MD - 08/20/2019 Procedure: Stress Echocardiogram Patient: EDILMA WALKER(Age): 1955(63y) Med Rec#: [id number] Sex: F [place] Loc: [facility] Ht / Wt: 165(cm)/61(kg) Pt. Loc: Echo Lab BSA: 1.67 Study Date: 08/20/2019 Pt. Type: Tape: Referring: KATERINAJEREMY Referring: Christopher Casillas ([id number]) Reading: Dayo Vera ([id number]) Alcoholism Worker: Maddie Liriano Note Taker: Rory Harris [facility] Note Taker 2: Friend, Lynne Diagnosis: *Abnormal result of [...] Normal Mid-Inferior Normal Normal Mid-Inferoseptal Normal Normal [place]-Septal Normal Normal [place]-Anterior Normal Normal [place]-Lateral Normal Normal [place]-Inferior Normal Normal [place]-Tip Normal Normal This report has been electronically signed by: Dayo Vera MD 08/20/2019 14:45:26 Images reviewed and interpretation verified [facility] Cardiac Ultrasound Laboratory Christopher Casillas MD ECHO ORDERABLES * EKG 12 Lead (08/07/2019 12:59 PM EDT) Ventricular rate 64 BPM MUSE SYSTEM Atrial Rate 64 BPM MUSE SYSTEM P-R Interval 110 ms MUSE SYSTEM QRS Duration 90 ms MUSE SYSTEM Q-T Interval 382 ms MUSE SYSTEM QTC Calculated (Bezet) 394 ms MUSE SYSTEM Calculated P Stockton 69 degrees MUSE SYSTEM Calculated R Stock[place] 73 degrees MUSE SYSTEM Calculated T Stockton 65 degrees MUSE SYSTEM INTERPRETATION Sinus rhythm with short OK Otherwise normal ECG No previous ECGs available Confirmed by MD Vera Daniel ([id number]) on 08/08/2019 3:40:53 PM MUSE SYSTEM 08/07/2019 12:5 9 PM EDT 08/08/2019 3:40 PM EDT Christopher Casillas MD ECG ORDERABLES MUSE SYSTEM documented in this encounter Visit Diagnoses Diagnosis Abnormal cardiovascular stress test- Primary Other nonspecific abnormal cardiovascular system function study Chest pain, unspecified type Palpitations Abnormal cardiovascular stress test Other nonspecific abnormal cardiovascular system function study documented in this encounter Care Teams Marketing Operations Coordinator Relationship Specialty Start Date End Date Priti Walsh PA [address] [place] [address] PCP - General Family Medicine 08/07/19 09/29/19 documented as of this encounter
--- OUTSIDE RECORDS SUMMARY | 2023-09-26 06:09 | XMS_ITS | Clinical Summary ---
Author Organization [facility] Address [facility] [place] [address] Care Team Providers Care Automotive Internet Sales Consultant Name Role Phone Unknown Primary Care Provider [...] Influenza standard series) 10/13/2023 12/01/2013 Care Teams Automotive Internet Sales Consultant Relationship Specialty Start Date End Date Unknown None PCP - General 09/30/19
--- OUTSIDE RECORDS SUMMARY | 2023-09-26 06:09 | XMS_ITS | Encounter Summary ---
Author Organization [facility] Address [address] [place] [address] Care Team Providers Care Laborer Pie Bakery Name Role Phone Unknown, Provider Primary Care Provider Encounter Details Date Type Department Care Team (Latest Contact Info) Description 11/21/2018 15:36 EDT - 11/21/2018 23:59 EDT Hospital Encounter [address] [address] Unknown, Provider, Discharge Disposition: Home or Self Care Social History Tobacco Use Types Packs/Day Years Used Date Smoking Tobacco: Never Assessed Sex and Gender Information Value Date Recorded Sex Assigned at Not on file Gender Identity Not on file Sexual Orientation Not on file documented as of this encounter Discharge Disposition Disposition Code Departure Means Destination Home or Self [facility] documented in this encounter Plan of Treatment Not on file documented as of this encounter Visit Diagnoses Not on filedocumented in this encounter Care Teams Laborer Pie Bakery Relationship Specialty Start Date End Date Unknown, Provider, PCP - General 12/21/14 documented as of this encounter
--- OUTSIDE RECORDS SUMMARY | 2023-09-26 06:09 | XMS_ITS | Referral Summary ---
Author Organization Health system Address [address] [place] [address] Care Team Providers Care Cruise Agent Name Role Phone Unknown, Provider Primary Care Provider Social History Tobacco Use Types Packs/Day Years Used Date Smoking Tobacco: Never Assessed Interpersonal Safety Answer Date Record ed Physically Hurt Never 09/13/2019 Verbally Threaten Not on file 09/13/2019 Sex and Gender Information Value Date Recorded Sex Assigned at Not on file Gender Identity Not on file Sexual Orientation Not on file Plan of Treatment Not on file Care Teams Cruise Agent Relationship Specialty Start Date End Date Unknown, Provider, PCP - General 12/21/14
--- OUTSIDE RECORDS SUMMARY | 2023-09-26 06:09 | XMS_ITS | Encounter Summary ---
Author Organization [facility] Address [address] [place] [address] Care Team Providers Care Aircraft Structural Fitter Name Role Phone Unknown, Provider Primary Care Provider Encounter Details Date Type Department Care Team (Latest Contact Info) Description 06/21/2015 9:12 EDT - 06/21/2015 23:59 EDT Hospital Encounter [address] [address] Unknown, Provider, Discharge Disposition: Home or Self Care Social History Tobacco Use Types Packs/Day Years Used Date Smoking Tobacco: Never Assessed Sex and Gender Information Value Date Recorded Sex Assigned at Not on file Gender Identity Not on file Sexual Orientation Not on file documented as of this encounter Discharge Disposition Disposition Code Departure Means Destination Home or Self Nursing Home documented in this encounter Plan of Treatment Not on file documented as of this encounter Visit Diagnoses Not on filedocumented in this encounter Care Teams Aircraft Structural Fitter Relationship Specialty Start Date End Date Unknown, Provider, PCP - General 12/21/14 documented as of this encounter
--- OUTSIDE RECORDS SUMMARY | 2023-09-26 06:09 | XMS_ITS | Encounter Summary ---
Author Organization [facility] Address [address] [place] [address] Care Team Providers Care Acid Dipper Name Role Phone Unavailable Primary Care Provider Unavailabl e Encounter Details Date Type Department Care Team (Late st Contact Info) Description 11/10/2007 Before PRISM Converted Visit (Maple) [facility] - Maple conversion [address] [place] [address] Tete Walsh PA-C [address] [place] [address] Social History Tobacco Use Types Packs/Day Years [...] ? SYLWIA FRANCE ? Accession #: ? [id number] ? : ? 1955 (Age: 52) ??F [...] PATHOLOGY ADAN DONOHUE [facility] [address] [place] [address] documented in this encounter Visit Diagnoses Not on filedocumented in this encounter
--- OUTSIDE RECORDS SUMMARY | 2023-09-26 06:09 | XMS_ITS | Encounter Summary ---
Author Organization [facility] Address [address] [place] [address] Care Team Providers Care Lie Detector Operator Name Role Phone Unavailable Primary Care Provider Unavailabl e Encounter Details Date Type Department Care Team (Late st Contact Info) Description 06/15/2003 Results Only [facility] - Maple conversion [address] [place] [address] Sarah Stevens, [place] [facility] [address] [place], [place] [address] Social History Tobacco Use Types Packs/Day Years [...] ? SYLWIA FRANCE ? Accession #: ? [id number] : ? 1955 (Age: 47) ??F ?Collect Date: ? 06/15/2003 Location: ? [facility] ? Receive Date: ? 06/17/2003 Provider: ?SARAH STEVENS POSTPARTUM RN Copy to: ? Specimen/Source: ?ThinPrep Pap Test, Cervix/Endocervix Last Menstrual Period: ? 1.5 yrs ? SPECIMEN ADEQUACY ? Satisfactory for Evaluation - transformation zone component present GENERAL CATEGORIZATION ? Negative for Intraepithelial Lesion or Malignancy ? Document reviewed and electronically signed by: ? Bob Galvan, CLIFF(ASCP) ? Report Date: ??06/22/2003 12:10 End of Report [facility] 06/15/2003 06/17/2003 Sarah Stevens POSTPARTUM RN PATHOLOGY ORDERABLES [facility] [address] [place] [address] documented in this encounter Visit Diagnoses Not on filedocumented in this encounter
--- OUTSIDE RECORDS SUMMARY | 2023-09-26 06:09 | XMS_ITS | Encounter Summary ---
[place] [address] Care Team Providers Care Fiber Design Engineer Name Role Phone Priti Walsh Primary Care Provider +1- [phone] Encounter Details Date Type Department Care Team (Late st Contact Info) Description 08/07/2019 Telephone Cardiology at [address] [address] Aurora Melara RN Social History Tobacco Use [...] type documented in this encounter Care Teams Fiber Design Engineer Relationship Specialty Start Date End Date Priti Walsh PA [address] [place] [address] PCP - General Family Medicine 08/07/19 09/29/19 documented as of this encounter
--- OUTSIDE RECORDS SUMMARY | 2023-09-26 06:09 | XMS_ITS | Encounter Summary ---
Author Organization [facility] Address [address] [place] [address] Care Team Providers Care Pickling Drum Operator Name Role Phone Unavailable Primary Care Provider Unavailabl e Encounter Details Date Type Department Care Team (Late st Contact Info) Description 01/01/2000 Results Only [facility] - Maple conversion [address] [place] [address], [place] Social History Tobacco Use [...] ? SYLWIA FRANCE ? Accession #: ? [id number] ? : ? 1955 (Age: 44) ??F [...] in its entirety in one cassette. ??(Dr. Hartman-)/[facility] End of Report [facility] 01/01/2000 01/02/2000 15: [address] NP PATHOLOGY ORDERABLES [facility] [address] [place] [address] documented in this encounter Visit Diagnoses Not on filedocumented in this encounter
--- OUTSIDE RECORDS SUMMARY | 2023-09-26 06:09 | XMS_ITS | Clinical Summary ---
Author Organization [facility] Address [address] [place] [address] Care Team Providers Care Seasonal Recruiter Name Role Phone Unknown, Provider Primary Care [...] 2015 Fall Risk Screening 10/17/2020 COVID-19 Vaccine (2022-24 season) 2022 Care Teams Seasonal Recruiter Relationship Specialty Start Date End Date Unknown, Provider, PCP - General 12/21/14
--- OUTSIDE RECORDS SUMMARY | 2023-09-26 06:09 | XMS_ITS | Encounter Summary ---
Author Organization [facility] Address [address] [place] [address] Care Team Providers Care Crop And Soil Technician Name Role Phone Unknown, Provider Primary Care Provider [phone] Encounter Details Date Type Department Care Team (Late st Contact Info) Description 06/21/2015 Results Only [facility] [phone] Timur La MD [address] [facility] [address] [place] [id number] Social History Tobacco Use Types Packs/Day Years [...] ? SYLWIA FRANCE ? Accession #: ? [id number] ? : ? 1955 (Age: 59) ??F [...] Diaz 06/23/2015 9:19 AM End of Report [facility] 06/21/2015 20:4 3 EDT 06/22/2015 20:43 EDT Timur La MD PATHOLOGY ORDERABLES [facility] [address] [place] [address] documented in this encounter Visit Diagnoses Not on filedocumented in this encounter Care Teams Crop And Soil Technician Relationship Specialty Start Date End Date Unknown, Provider, PCP - General 12/21/14 documented as of this encounter
--- OUTSIDE RECORDS SUMMARY | 2023-09-26 06:09 | XMS_ITS | Encounter Summary ---
Author Organization [facility] Address [address] [place] [address] Care Team Providers Care Auto Mechanic Name Role Phone Unknown, Provider Primary Care Provider [phone] Encounter Details Date Type Department Care Team ([facility] st Contact Info) Description 11/21/2018 Results Only [facility] [phone] Isabella Linn MD [address] [place] [address] Social History Tobacco Use Types Packs/Day Years [...] ? SYLWIA FRANCE ? Accession #: ? [id number] ? : ? 1955 (Age: 63) ??F [...] Aragon 11/22/2018 11:00 AM End of Report [facility] 11/21/2018 22:1 0 EDT 11/21/2018 22:10 EDT Isabella Linn MD PATHOLOGY ORDERABLES [facility] [address] [place] [address] documented in this encounter Visit Diagnoses Not on filedocumented in this encounter Care Teams Auto Mechanic Relationship Specialty Start Date End Date Unknown, Provider, PCP - General 12/21/14 documented as of this encounter
--- OUTSIDE RECORDS SUMMARY | 2023-09-26 06:09 | XMS_ITS | Encounter Summary ---
Author Organization [facility] Address [address] [place] [address] Care Team Providers Care Wet Cotton Feeder Name Role Phone Unknown, Provider Primary Care Provider Encounter Details Date Type Department Care Team (Late st Contact Info) Description 06/14/2023 Lab Requisition [facility] Pathology & Laboratory Medicine - [facility] [address] [place] [address] Jai Matta, [address] [place] [address] Neoplasm of unspecified behavior of bone, soft [...] management options, if applicable. 06/18/2023 9:29 EDT [facility] Final Diagnosis A. SKIN OF CHEST, RIGHT UPPER, SHAVE BIOPSY: - Seborrheic keratosis, inflamed. 06/18/2023 9:29 [facility] Attestation By the signature below, the attending physician certifies that they have 1) personally conducted a gross and/or microscopic examination of the described specimen(s), and/or personally interpreted the results of laboratory testing of the described specimen(s), and 2) personally rendered or confirmed the above diagnosis. 06/18/2023 9:29 [facility] at 0929 Clinical History Abnormal skin growth; clinical diagnosis code: D49.2 06/18/2023 9:29 [facility] Gross Description A. Received in [...] ANDREW LITTLE(ASCP) 06/17/2023 9:39 06/18/2023 9:29 EDT [facility] Performing Lab [facility] 06/18/2023 9:29 T [facility] Scanned Images 06/18/2023 9:29 T [facility] Tissue SPECIMEN FROM SKIN / Unknown 06/14/2023 15:00 EDT 06/14/2023 21:56 EDT Jai MORALES PATHOLOGY ORDERABL ES [facility] [address] [place] [address] documented in this encounter Visit Diagnoses Diagnosis Neoplasm of unspecified behavior of bone, soft tissue, and skin documented in this encounter Care Teams Wet Cotton Feeder Relationship Specialty Start Date End Date Unknown, Provider, PCP - General 12/21/14 documented as of this encounter
--- OUTSIDE RECORDS SUMMARY | 2023-09-26 06:09 | XMS_ITS | Encounter Summary ---
Author Organization [facility] Address [address] [place] [address] Care Team Providers Care Cook'S Assistant Name Role Phone Unavailable Primary Care Provider Unavailabl e Encounter Details Date Type Department Care Team (Late st Contact Info) Description 05/15/2002 Results Only [facility] - Maple conversion [address] [place] [address] Sarah Stevens, [place] [facility] [address] [place], [place] [address] Social History Tobacco Use Types Packs/Day Years [...] ? SYLWIA FRANCE ? Accession #: ? [id number] : ? 1955 (Age: 46) ??F ?Collect Date: ? 05/15/2002 Location: ? [facility] ? Receive Date: ? 05/19/2002 Provider: ?SARAH STEVENS INSURANCE SOLICITOR Copy to: ? Specimen/Source: ?ThinPrep Pap Test, Cervix/Endocervix Last Menstrual Period: ? 05/10/02 ? SPECIMEN ADEQUACY ? Satisfactory for Evaluation - transformation zone component present GENERAL CATEGORIZATION ? Negative for Intraepithelial Lesion or Malignancy ? Document reviewed and electronically signed by: ? ALCIDES Kilgore(ASCP) ? Report Date: ??05/22/2002 09:48 End of Report [facility] 05/15/2002 05/19/2002 Sarah Stevens INSURANCE SOLICITOR PATHOLOGY ORDERABLES [facility] [address] [place] [address] documented in this encounter Visit Diagnoses Not on filedocumented in this encounter
--- OUTSIDE RECORDS SUMMARY | 2023-09-26 06:09 | XMS_ITS | Encounter Summary ---
Author Organization [facility] Address [facility] [place] [address] Care Team Providers Care Casting Machine Control Board Operator Name Role Phone Priti Walsh Primary Care Provider [phone] Reason for Referral * Diagnostic Test (Routine) - Closed Specialty Diagnoses / Procedures Referred By Contac t Referred To Contact Diagnoses Abnormal cardiovascular stress test Procedures Echocardiogram Stress (Treadmill) Luis Gallardo MD [facility] [place] [address] [facility] [place] [address] Referral ID Status Reason Start Date Expiration Date V isits Requested Visits Authorized [id number] Closed Specialty Service Requested 08/13/2019 02/09/2020 1 1 Reason for Visit * Diagnostic Test (Routine) - Closed Specialty Diagnoses / Procedures Referred By Contac t Referred To Contact Diagnoses Abnormal cardiovascular stress test Procedures Echocardiogram Stress (Treadmill) Luis Gallardo MD [facility] [place] [address] [facility] [place] [address] Referral ID Status Reason Start Date Expiration Date V isits Requested Visits Authorized [id number] Closed Specialty Service Requested 08/13/2019 02/09/2020 1 1 Encounter Details Date Type Department Care Team (Latest Contact Info) Description 08/20/2019 12:40 PM EDT - 08/20/2019 11:59 PM EDT Hospital Encounter Non-Invasive [place] [phone] Luis Casillsa MD [facility] [place] [address] Abnormal cardiovascular stress test Discharge Disposition: Home [...] Barroso ? (Age): 1955(63y) Med Rec#: ? [id number] ?Sex: ?F ? [place] Loc[place] ? [facility] [place]Ht / Wt: ??165(cm)/61(kg) Pt. Loc: ?Echo Lab ?BSA: ?1.67 Study Date: ?? 08/20/2019 ?Pt. Type: Tape: ? Referring: JULIO Referring: Luis Casillas ([id number]) Reading: Dayo Vera ([id number]) Bar Back: Maddie Liriano Reading Recovery Teacher: Rory Harris [facility] Reading Recovery Teacher 2: Lynne Bustillos Diagnosis: *Abnormal result of [...] Normal ? Mid-Inferoseptal ?Normal ? Normal ? Hunt-Septal ? Normal ? Normal ? Hunt-Anterior ? Normal ? Normal ? Hunt-Lateral ?Normal ? Normal ? Hunt-Inferior ? Normal ? Normal ? Hunt-Tip ?Normal ? Normal ? This report has been electronically signed by: Dayo Vera MD ? 08/20/2019 14:45:26 Images reviewed and interpretation verified [facility] Cardiac Ultrasound Laboratory Procedure Note Dayo Vera MD - 08/20/2019 Procedure: Stress Echocardiogram Patient: EDILMA WALKER(Age): 1955(63y) Med Rec#: [id number] Sex: F [place] [facility] [place] Ht / Wt: 165(cm)/61(kg) Pt. Loc: Echo Lab BSA: 1.67 Study Date: 08/20/2019 Pt. Type: Tape: Referring: NIECYNATBRYAN Referring: Luis Casillas ([id number]) Reading: Dayo Vera ([id number]) Bar Back: Maddie Liriano Reading Recovery Teacher: Rory Harris [facility] Reading Recovery Teacher 2: Friend, Lynne Diagnosis: *Abnormal result of [...] Normal Mid-Inferior Normal Normal Mid-Inferoseptal Normal Normal Hunt-Septal Normal Normal Hunt-Anterior Normal Normal Hunt-Lateral Normal Normal Hunt-Inferior Normal Normal Hunt-Tip Normal Normal This report has been electronically signed by: Dayo Vera MD 08/20/2019 14:45:26 Images reviewed and interpretation verified [facility] Cardiac Ultrasound Laboratory Luis Casillas MD ECHO [...] Starting on Loulou 08/20/19 at 1412, Until Loulou 08/20/19 at 1340, Other, for enhancement of sub-optimal echo images, Echo Lab (Intra-Procedure), Routine Given 08/20/2019 1:40 PM EDT 0.5 mLs documented in this encounter Care Teams Casting Machine Control Board Operator Relationship Specialty Start Date End Date Priti Walsh PA [address] [place] [address] PCP - General Family Medicine 08/07/19 09/29/19 documented as of this encounter
--- OUTSIDE RECORDS SUMMARY | 2023-09-26 06:09 | XMS_ITS | Encounter Summary ---
Author Organization [facility] [place] [address] Care Team Providers Care Middle School Director Name Role Phone Priti Walsh Primary Care Provider [phone]- [phone] Encounter Details Date Type Department Care Team (Late st Contact Info) Description 08/20/2019 Telephone Non-Invasive [place] [phone] Luis Gallardo MD [facility] [place] [address] Social History Tobacco Use Types Packs/Day Years [...] on filedocumented in this encounter Care Teams Middle School Director Relationship Specialty Start Date End Date Priti Walsh PA [address] [place], [place] [id number] PCP - General Family Medicine 08/07/19 09/29/19 documented as of this encounter
[2023-09-26 06:17] VITALS: BP 153/68; PULSE 60; RESP 16; TEMP 36.9; O2SAT 97
--- NOTE | 2023-09-26 07:18 | W.PM.DSUDISC ---
Date of service: 09/26/23 Time of Service: 09:00 Discharge Plan Disposition Patient Disposition: Home Condition: Stable Discharge Details Attending Provider: Yvon Lott Primary Care Provider: Priti Walsh Home Meds and New Rx's Prescriptions: Continued triamcinolone acetonide 0.1 % cream 1 applic topical BID imiquimod 5 % cream in packet 1 packet topical .twice weekly 90 Days Qty: 12 1RF Rx Instructions: Apply prior to normal sleeping hrs and leave on for 6 to 10 hrs. Discharge Instructions Additional Instructions: Surgery: Left ring finger trigger release Activity: Protect hand for a few weeks. Gently increase finger motion and hand gripping to prevent stiffness. Recommend elevation to minimize swelling and discomfort. Prescriptions: None Resume home medicines, use [id number] Tylenol (acetaminophen) as needed for mild pain and ibuprofen (Motrin) or naproxen (Aleve) as needed for moderate to severe pain and swelling. Dressings: Leave dressing in place for 3 days. May then remove and leave open to air or cover incision with Band-Aid. May get wet after 5 days. Follow-up: 10-[address] Lott Please call the office during business hours with any questions or concerns. Stand Alone Forms: Varinedr Calderon (DSU) Discharge Orders Discharge Orders: Discharge Order (Routine); Ordered 09/26/23 Ordered By: Yvon Lott DS: Diagnosis Discharge Diagnosis (1) Trigger finger, left ring finger: Status: Acute
--- NOTE | 2023-09-26 07:19 | W.PM.OP ---
Date of service: 09/26/23 Time of Service: 07:30 Operative Note Operative Note DATE OF PROCEDURE: 09/26/23 PRE-OP DIAGNOSIS: Left ring trigger finger PROCEDURE: Left ring finger trigger release, CPT# 28614 SURGEON: Yvon Lott AUDIO VISUAL EQUIPMENT RENTAL CLERK: None None ANESTHESIA TYPE: Local By Surgeon Refer to Anesthesia Record ESTIMATED BLOOD LOSS: 1 TOURNIQUET TIME: 0 COMPLICATIONS: None Patient was transported to: same day Patient's condition: stable Indications: Please see complete medical record for details. Procedure Description: In the operating room, the patient was positioned supine on the stretcher. All bony prominences were padded. Preoperative antibiotics were omitted. The correct patient, procedure, and side of the procedure were all verified prior to beginning. Local anesthesia was induced about the site with 10cc of 1% lidocaine containing epinephrine buffered with 1 cc of sodium bicarbonate. The Left hand was prepped and draped in the usual sterile fashion. Proper analgesia was confirmed. A small volar longitudinal approach was made overlying the ring finger MCP joint. Soft tissues were swept to the sides and retracted to expose the A1 addis. The release was started centrally with a knife and completed at the proximal and distal margins with tenotomy scissors. The addis was impressively thickened. Care was taken to protect the flexor tendons. The tendons were inspected and showed some overlying tenosynovitis, which was debrided. Appropriate flexor tendon excursion was confirmed. The patient readily demonstrated full range of motion of the finger without triggering. The small incision was irrigated and then dried. Hemostasis was appropriate. The incision was closed using 3-0 nylon in a horizontal mattress fashion. Xeroform was applied followed by gauze and the hand was gently compressed with an Roel bandage. The patient tolerated local anesthesia without complication and was transferred out of the operating room in a stable condition.
[2023-09-26] MEDS: Lidocaine 1% Multi-Dose W/EPI 1/100,000 50 ML VIAL (07:31)
[2023-09-26] MEDS: Sodium Bicarbonate 50 MEQ/50 ML VIAL (07:31)
[2023-09-26 08:00] VITALS: BP 161/80; PULSE 59; RESP 16; TEMP 36.5; O2SAT 97
== END 2023-09-26 06:06 | disposition home or self-care (01) ==
PROVIDERS: PCP Physician Assistant Medical; Visit Provider Student in an Organized Health Care Education/Training Program
PROC: (CPT 26055; principal; 2023-09-26 07:30)
DX: M65.342 Trigger finger, left ring finger (principal)
CPT/HCPCS: 26055; J2004

== ENCOUNTER → 2023-10-08 09:16 | Outpatient (BNVA) | payer MEDICARE, SELFPAY | PROVIDERS: PCP Physician Assistant Medical; Visit Provider Student in an Organized Health Care Education/Training Program | DX: Z47.89 Encounter for other orthopedic aftercare (principal); M75.101 Unspecified rotator cuff tear or rupture of right shoulder, not specified as traumatic; M75.21 Bicipital tendinitis, right shoulder ==

== ENCOUNTER 2023-10-11 06:02 | Day surgery (SDC) | payer MEDICARE, SELFPAY ==
--- NOTE | 2023-10-10 16:30 | ANES.PREOP_ITS ---
General Info Date of Service Date Performed: 10/11/23 Height: 5 ft 5 in Weight: 61.9 kg Body Mass Index (BMI): 22.6 Surgical Procedure: Operation Date: 10/11/23 07:40 Proposed Procedure Side Surgeon p Shoulder Rotator Cuff Arthroscopic w/Extensive Debridement, Biceps Tenodesis, Subacromial Decompression Right Yvon Lott MD Meds Allergies and Home Medications Allergies Allergy/AdvReac Type Severity Reaction Status Date / Time ibuprofen AdvReac Intermediate Other (See Verified 10/11/23 06:37 Comment) Home Medication ?Medication ?Instructions ?Recorded triamcinolone acetonide 0.1 % 1 applic topical BID 05/07/23 topical cream imiquimod 5 % topical cream packet 1 packet topical .twice weekly 3 07/09/23 months #12 ea naproxen 250 mg tablet 250 mg PO BID PRN moderate pain 10/11/23 and swelling #40 tabs oxycodone 5 mg tablet 5 - 10 mg (1 - 2 x 5 mg) PO .q4-6h 10/11/23 PRN severe pain #18 tabs Current Visit Medications: Current Medications Generic Name Dose Route Start Last Admin Trade Name Freq PRN Reason Stop Dose Admin Ringer's Solution 1,000 mls @ 30 mls/hr 10/11/23 06:00 IV 10/11/23 23:59 INFUSION CAMILA Cefazolin Sodium/Dextrose 2 gm in 50 mls @ 100 mls/hr 10/11/23 06:00 Ancef Duplex IVPB 10/11/23 23:59 PREOP CAMILA Tranexamic Acid/Sodium Chloride 1,000 mg in 100 mls @ 600 mls/hr 10/11/23 06 :00 IVPB 10/11/23 23:59 PREOP CAMILA IV Miscellaneous Supplies 1 each 10/11/23 06:00 Iv Access IV 10/11/23 23:59 DIRECTED CAMILA Sodium Chloride 0 ml 10/11/23 06:00 Normal Saline Flush 10 Ml Syr IV 10/11/23 23:59 PRN PRN Sodium Chloride 0 ml 10/11/23 06:00 Normal Saline 10 Ml Vial IJ 10/11/23 23:59 DIRECTED PRN Sterile Water 0 ml 10/11/23 06:00 Water,Injection,Sterile 10 Ml Vial IJ 10/11/23 23:59 DIRECTED PRN PFSH Active Problems Active Problems: Problem Status Onset Code Trigger finger, left ring finger Acute M65.342 Tendonitis of long head of biceps brachii of right shoulder Acute M75.21 Right rotator cuff tear Acute ~11/07/22 M75.101 Abnormal skin growth Acute D49.2 Disorder of the skin and subcutaneous tissue, unspecified Acute L98.9 Endometrial thickening on ultrasound Acute R93.89 Medical History Medical History Pain in right foot Pelvic and perineal pain Pain in left knee Abnormal results of cardiovascular function studies Abnormal head CT Hyperglycemia Generalized abdominal pain Palpitations Abnormal weight loss Fatigue Functional disorder of intestine GERD without esophagitis Polyneuropathy Migraine with aura Melanocytic nevus GERD (gastroesophageal reflux disease) Neuropathy Degenerative joint disease Irritable bowel syndrome Surgical History Surgical History H/O colonoscopy 12/15/2012 H/O thumb surgery trigger thumb right History of bilateral tubal ligation 1985 Tobacco Smoking/Tobacco Use Status: Former Tobacco Use Alcohol Alcohol Intake: never Substance Use Substance use: Never Substance use type: does not use Vital Signs and Lab Results Vital Signs Most Recent Vital Signs in EMR: Temp Pulse Resp BP Pulse Ox 36.8 C 63 16 158/70 H 98 10/11/23 06:38 10/11/23 06:38 10/11/23 06:38 10/11/23 06:38 10/11/23 06:38 Lab Results Blood Type / Crossmatch: No Data to Display Complete Blood Count: No Data to Display Complete Metabolic Panel: No Data to Display Liver Function Panel: No Data to Display Coagulation Panel: No Data to Display Cardiac Panel: No Data to Display Arterial Blood Gas: No Data to Display Venous Blood Gas: No Data to Display Pancreas Panel: No Data to Display Thyroid Panel: No Data to Display Infectious Disease: No Data to Display Blood Cultures: No Data to Display Toxicology Panel: No Data to Display Imaging and Studies Imaging and Studies Study information below may be from another EMR and interpreted by another provider. Please see original notes in EMR for more complete details. EKG Summary: 07/31: sinus, short CA. Stress Test Summary: 07/31: 11 METS. no symptoms suggestive of ischemia. ST depression with exertion. Echocardiogram Summary: 08/30 stress ECHO: 9.[address] depression with exertion. no WMA at peak exertion. non-ischemic stress test. LVEF 65%. mild MR. mild-mod TR. Anesthesia Assessment and Plan Anesthesia History Personal History: No History of Anesthesia Complications Family History: No Family History of Anesthesia Complications Exercise Tolerance Exercise Tolerance: Metabolic Equivalents>4 Cardiac & Pulmonary Exam Cardiac Exam: Normal S1/S2 Heart Sounds Pulmonary Exam: Clear Bilateral Breath Sounds Implantable Cardiac Device Does patient have a Pacemaker or an ICD?: No Airway Exam Known Difficult Airway: No Mallampati Class: 3 Mouth Opening: Normal (> 3cm) Thyromental Distance: Less than 3 cm Neck Range of Motion: Full ROM Neck Circumference: Normal Teeth Condition: Normal Dentition ASA Classification ASA Score: ASA 2 Emergency Case?: No NPO Status NPO Status: NPO Clears >2 hours, Solids >8 hours Anesthesia Plan Resuscitation Status: Full Code Anesthesia Technique: General Anesthesia Airway Planned: Endotracheal Tube Pain Management: Other Monitors Used: Standard Monitors Preoperative Comments:: Very pleasant 67 yo female for shoulder scope. Sig PMHx: GERD (no meds, but does endorse burning at times), polyneuropathy (she is unaware of what this is), migraine (has difficulty with speech and vision during these. unremarkable MRIs in the past). former smoker. Discussed risks, side effects, and benefits of brachial plexus block. Risks including but not limited to infection, vascular damage, nerve injury (~1:5000 permanent), and block failure. She is currently not interested in regional anesthesia. She would like regional as a rescue option is she is in significant pain.
[2023-10-11] VITALS (31 sets, daily range): BP systolic 120–164; BP diastolic 62–97; PULSE 46–74; RESP 12–22; TEMP 36.1–36.8; O2SAT 93–100; BMI 22.6
--- OUTSIDE RECORDS SUMMARY | 2023-10-11 06:03 | XMS_ITS | Encounter Summary ---
Author Organization [facility] Address [address] [place] [address] Care Team Providers Care Substance Abuse Rn Name Role Phone Unavailable Primary Care Provider Unavailabl e Encounter Details Date Type Department Care Team (Late st Contact Info) Description 01/01/2000 Results Only [facility] - Maple conversion [address] [place] [address], [place] Social History Tobacco Use [...] ? SYLWIA FRANCE ? Accession #: ? [id number] ? : ? 1955 (Age: 44) ??F [...] in its entirety in one cassette. ??(Dr. Hartman-)/[facility] End of Report [facility] 01/01/2000 01/02/2000 15: [address] NP PATHOLOGY ORDERABLES [facility] [address] [place] [address] documented in this encounter Visit Diagnoses Not on filedocumented in this encounter
--- OUTSIDE RECORDS SUMMARY | 2023-10-11 06:03 | XMS_ITS | Encounter Summary ---
Author Organization [facility] Address [address] [place] [address] Care Team Providers Care Elementary School Director Name Role Phone Unknown, Provider Primary Care Provider [phone] Encounter Details Date Type Department Care Team (Late st Contact Info) Description 06/14/2023 Lab Requisition [facility] Pathology & Laboratory Medicine - [facility] [address] [place] [address] Jai Matta, [address] [place] [address] Neoplasm of unspecified behavior of bone, soft [...] management options, if applicable. 06/18/2023 9:29 EDT [facility] Final Diagnosis A. SKIN OF CHEST, RIGHT UPPER, SHAVE BIOPSY: - Seborrheic keratosis, inflamed. 06/18/2023 9:29 [facility] Attestation By the signature below, the attending physician certifies that they have 1) personally conducted a gross and/or microscopic examination of the described specimen(s), and/or personally interpreted the results of laboratory testing of the described specimen(s), and 2) personally rendered or confirmed the above diagnosis. 06/18/2023 9:29 [facility] at 0929 Clinical History Abnormal skin growth; clinical diagnosis code: D49.2 06/18/2023 9:29 [facility] Gross Description A. [...] ANDREW LITTLE(ASCP) 06/17/2023 9:39 06/18/2023 9:29 EDT [facility] Performing Lab [facility] 06/18/2023 9:29 T [facility] Scanned Images 06/18/2023 9:29 T [facility] Tissue SPECIMEN FROM SKIN / Unknown 06/14/2023 15:00 EDT 06/14/2023 21:56 EDT Jai MORALES PATHOLOGY ORDERABL ES [facility] [address] [place] [address] documented in this encounter Visit Diagnoses Diagnosis Neoplasm of unspecified behavior of bone, soft tissue, and skin documented in this encounter Care Teams Elementary School Director Relationship Specialty Start Date End Date Unknown, Provider, PCP - General 12/21/14 documented as of this encounter
--- OUTSIDE RECORDS SUMMARY | 2023-10-11 06:03 | XMS_ITS | Referral Summary ---
Author Organization [facility] Address [address] [place] [address] Care Team Providers Care Transit Proof Machine Operator Name Role Phone Unknown, Provider Primary Care Provider [phone] Social History Tobacco Use Types Packs/Day Years Used Date Smoking Tobacco: Never Assessed Interpersonal Safety Answer Date Record ed Physically Hurt Never 09/13/2019 Verbally Threaten Not on file 09/13/2019 Sex and Gender Information Value Date Recorded Sex Assigned at Not on file Gender Identity Not on file Sexual Orientation Not on file Plan of Treatment Not on file Care Teams Transit Proof Machine Operator Relationship Specialty Start Date End Date Unknown, Provider, PCP - General 12/21/14
--- OUTSIDE RECORDS SUMMARY | 2023-10-11 06:03 | XMS_ITS | Encounter Summary ---
[place] [address] Care Team Providers Care Former Hand Name Role Phone Priti Walsh Primary Care Provider [phone]- [phone] Encounter Details Date Type Department Care Team (Late st Contact Info) Description 08/07/2019 Telephone Cardiology at [address] [phone] Aurora Melara RN Social History Tobacco Use [...] type documented in this encounter Care Teams Former Hand Relationship Specialty Start Date End Date Priti Walsh PA [address] [place] [id number] PCP - General Family Medicine 08/07/19 09/29/19 documented as of this encounter
--- OUTSIDE RECORDS SUMMARY | 2023-10-11 06:03 | XMS_ITS | Encounter Summary ---
Author Organization [facility] Address [facility] [place] [address] Care Team Providers Care Ironing Worker Name Role Phone Priti Walsh Primary Care Provider [phone] Reason for Referral * Diagnostic Test (Routine) - Closed Specialty Diagnoses / Procedures Referred By Verónica bender Referred To Contact Diagnoses Abnormal cardiovascular stress test Procedures Echocardiogram Stress (Treadmill) Luis Gallardo MD [facility] [place] [address] [facility] [place] [address] Referral ID Status Reason Start Date Expiration Date V isits Requested Visits Authorized [id number] Closed Specialty Service Requested 08/13/2019 02/09/2020 1 1 Reason for Visit * Consultation (VIRGIE) - Closed Specialty Diagnoses / Procedures Referred By Contkarmen t Referred To Contact Cardiology Diagnoses chest pain, abnormal stress test Priti Walsh PA [address] [place] [address] [facility] [address] [place] [id number] Referral ID Status Reason Start Date Expiration Date Visits Re quested Visits Authorized [id number] Closed 08/04/2019 08/03/2020 1 1 Encounter Details Date Type Department Care Team (Late st Contact Info) Description 08/07/2019 1:00 PM EDT Office Visit Cardiology at [address] [place] [address] Christopher Casillas MD [facility] [place] [address] Luis Gallardo MD [facility] [place] [address] Abnormal cardiovascular stress test (Primary Dx); Chest [...] original note were not included. [facility] [place] [address] CARDIOLOGY OUTPATIENT NOTE PRIMARY CARE PROVIDER: ANDREW [...] 382 QTC Calculated (Bezet) 394 Calculated P [place] 69 Calculated R [place] 73 Calculated T [place] 65 INTERPRETATION Sinus rhythm with short W[place] Otherwise normal ECG No previous ECGs available [...] have intermittent bursts of AF, but her [id number] would be zero so will continue to follow #Rotator cuff tendonitis, biceps tendonitis -Counseled regarding the healing course of repetitive stress and tendon injuries Encouraged healthy lifestyle. Shared her ASCVD risk score of 3.3%. Luis Gallardo MD Cable Puller PGY-4 08/07/19 Greater than 50% of this [...] in discussion with me. Christopher Casillas MD, [facility], [facility] Staff Executive Relations Specialist administrative officer and Medical Education pager [phone] documented in this encounter Miscellaneous Notes * [...] Barroso ? (Age): 1955(63y) Med Rec#: ? [id number] ?Sex: ?F ? [place] Loc: ? [facility] ?Ht / Wt: ??165(cm)/61(kg) Pt. Loc: ?Echo Lab ?BSA: ?1.67 Study Date: ?? 08/20/2019 ?Pt. Type: Tape: ? Referring: JULIO Referring: Christopher Casillas ([id number]) Reading: Dayo Vera ([id number]) Heavy Equipment Operator: Maddie Liriano Binding Folder Machine: Rory Harris [facility] Binding Folder Machine 2: Lynne Bustillos Diagnosis: *Abnormal result of [...] Normal ? Mid-Inferoseptal ?Normal ? Normal ? Innis-Septal ? Normal ? Normal ? Innis-Anterior ? Normal ? Normal ? Innis-Lateral ?Normal ? Normal ? Innis-Inferior ? Normal ? Normal ? Innis-Tip ?Normal ? Normal ? This report has been electronically signed by: Dayo Vera MD ? 08/20/2019 14:45:26 Images reviewed and interpretation verified [facility] Cardiac Ultrasound Laboratory Procedure Note Dayo Vera MD - 08/20/2019 Procedure: Stress Echocardiogram Patient: EDILMA WALKER(Age): 1955(63y) Med Rec#: [id number] Sex: F [place] [facility] Ht / Wt: 165(cm)/61(kg) Pt. Loc: Echo Lab BSA: 1.67 Study Date: 08/20/2019 Pt. Type: Tape: Referring: KATERINAJEREMY Referring: Christopher Casillas ([id number]) Reading: Dayo Vera ([id number]) Heavy Equipment Operator: Maddie Liriano Binding Folder Machine: Rory Harris [facility] Binding Folder Machine 2: Friend, Lynne Diagnosis: *Abnormal result of [...] Normal Mid-Inferior Normal Normal Mid-Inferoseptal Normal Normal Innis-Septal Normal Normal Innis-Anterior Normal Normal Innis-Lateral Normal Normal Innis-Inferior Normal Normal Innis-Tip Normal Normal This report has been electronically signed by: Dayo Vera MD 08/20/2019 14:45:26 Images reviewed and interpretation verified [facility] Cardiac Ultrasound Laboratory Christopher Casillas MD ECHO ORDERABLES * EKG 12 Lead (08/07/2019 12:59 PM EDT) Ventricular rate 64 BPM MUSE SYSTEM Atrial Rate 64 BPM MUSE SYSTEM P-R Interval 110 ms MUSE SYSTEM QRS Duration 90 ms MUSE SYSTEM Q-T Interval 382 ms MUSE SYSTEM QTC Calculated (Bezet) 394 ms MUSE SYSTEM Calculated P [place] 69 degrees MUSE SYSTEM Calculated R [place] 73 degrees MUSE SYSTEM Calculated T [place] 65 degrees MUSE SYSTEM INTERPRETATION Sinus rhythm with short WV Otherwise normal ECG No previous ECGs available Confirmed by MD Vera Daniel ([id number]) on 08/08/2019 3:40:53 PM MUSE SYSTEM 08/07/2019 12:5 9 PM EDT 08/08/2019 3:40 PM EDT Christopher Casillas MD ECG ORDERABLES MUSE SYSTEM documented in this encounter Visit Diagnoses Diagnosis Abnormal cardiovascular stress test- Primary Other nonspecific abnormal cardiovascular system function study Chest pain, unspecified type Palpitations Abnormal cardiovascular stress test Other nonspecific abnormal cardiovascular system function study documented in this encounter Care Teams Ironing Worker Relationship Specialty Start Date End Date Priti Walsh PA [address] [place] [address] PCP - General Family Medicine 08/07/19 09/29/19 documented as of this encounter
--- OUTSIDE RECORDS SUMMARY | 2023-10-11 06:03 | XMS_ITS | Encounter Summary ---
Author Organization [facility] Address [address] [place] [address] Care Team Providers Care Superintendent Compressor Stations Name Role Phone Unavailable Primary Care Provider Unavailabl e Encounter Details Date Type Department Care Team (Late st Contact Info) Description 06/15/2003 Results Only [facility] - Maple conversion [address] [place] [address] Sarah Stevens, [place] [facility] [address] [place], [place] [address] Social History Tobacco Use Types Packs/Day Years [...] ? SYLWIA FRANCE ? Accession #: ? [id number] : ? 1955 (Age: 47) ??F ?Collect Date: ? 06/15/2003 Location: ? [facility] ? Receive Date: ? 06/17/2003 Provider: ?SARAH STEVENS VITREO RETINAL SURGEON Copy to: ? Specimen/Source: ?ThinPrep Pap Test, Cervix/Endocervix Last Menstrual Period: ? 1.5 yrs ? SPECIMEN ADEQUACY ? Satisfactory for Evaluation - transformation zone component present GENERAL CATEGORIZATION ? Negative for Intraepithelial Lesion or Malignancy ? Document reviewed and electronically signed by: ? Bob Galvan, CLIFF(ASCP) ? Report Date: ??06/22/2003 12:10 End of Report [facility] 06/15/2003 06/17/2003 Sarah Stevens VITREO RETINAL SURGEON PATHOLOGY ORDERABLES [facility] [address] [place] [address] documented in this encounter Visit Diagnoses Not on filedocumented in this encounter
--- OUTSIDE RECORDS SUMMARY | 2023-10-11 06:03 | XMS_ITS | Clinical Summary ---
Author Organization [facility] Address [facility] [place] [address] Care Team Providers Care Letter Of Credit Document Examiner Name Role Phone Unknown Primary Care Provider [...] Influenza standard series) 10/13/2023 12/01/2013 Care Teams Letter Of Credit Document Examiner Relationship Specialty Start Date End Date Unknown None PCP - General 09/30/19
--- OUTSIDE RECORDS SUMMARY | 2023-10-11 06:03 | XMS_ITS | Encounter Summary ---
Author Organization [facility] Address [address] [place] [address] Care Team Providers Care Clinical Safety Manager Name Role Phone Unavailable Primary Care Provider Unavailabl e Encounter Details Date Type Department Care Team (Late st Contact Info) Description 12/25/2005 Results Only [facility] - Maple conversion [address] [place] [address] Sarah Stevens, [place] [facility] [address] [place], [place] [address] Social History Tobacco Use Types Packs/Day Years [...] ? SYLWIA FRANCE ? Accession #: ? [id number] : ? 1955 (Age: 50) ??F ?Collect Date: ? 12/25/2005 Location: ? [facility] ? Receive Date: ? 12/27/2005 Provider: ?SARAH STEVENS DOCUMENT CONTROL CLERK Copy to: ? Specimen/Source: ?ThinPrep Pap Test, Cervix/Endocervix, processed on InvenSensePrep Imaging System, with manual evaluation Last Menstrual Period: ? 4 years ago ? SPECIMEN ADEQUACY ? Satisfactory for Evaluation - transformation zone component present - scant squamous epithelial component GENERAL CATEGORIZATION ? Negative for Intraepithelial Lesion or Malignancy ? Document reviewed and electronically signed by: ? ALCIDES Kilgore(ASCP) ? Report Date: ??01/04/2006 12:13 End of Report [facility] 12/25/2005 12/27/2005 Sarah Stevens DOCUMENT CONTROL CLERK PATHOLOGY ORDERABLES Performing Organization Address City/State/[facility] Co de Phone Number [facility] [address] [place] [address] documented in this encounter Visit Diagnoses Not on filedocumented in this encounter
--- OUTSIDE RECORDS SUMMARY | 2023-10-11 06:03 | XMS_ITS | Encounter Summary ---
Author Organization [facility] Address [address] [place] [address] Care Team Providers Care Plant Pathologist Name Role Phone Unknown, Provider Primary Care Provider [phone] Encounter Details Date Type Department Care Team (Latest Contact Info) Description 06/21/2015 9:12 EDT - 06/21/2015 23:59 EDT Hospital Encounter [address] [address] Unknown, Provider, Discharge Disposition: Home or Self Care Social History Tobacco Use Types Packs/Day Years Used Date Smoking Tobacco: Never Assessed Sex and Gender Information Value Date Recorded Sex Assigned at Not on file Gender Identity Not on file Sexual Orientation Not on file documented as of this encounter Discharge Disposition Disposition Code Departure Means Destination Home or Self Prison documented in this encounter Plan of Treatment Not on file documented as of this encounter Visit Diagnoses Not on filedocumented in this encounter Care Teams Plant Pathologist Relationship Specialty Start Date End Date Unknown, Provider, PCP - General 12/21/14 documented as of this encounter
--- OUTSIDE RECORDS SUMMARY | 2023-10-11 06:03 | XMS_ITS | Clinical Summary ---
Author Organization [facility] Address [address] [place] [address] Care Team Providers Care Vat Washer Name Role Phone Unknown, Provider Primary Care [...] COVID-19 Vaccine (2022-24 season) 2022 Care Teams Vat Washer Relationship Specialty Start Date End Date Unknown, Provider, PCP - General 12/21/14
--- OUTSIDE RECORDS SUMMARY | 2023-10-11 06:03 | XMS_ITS | Encounter Summary ---
[facility] Organization [facility] Address [facility] [place] [address] Care Team Providers Care Taxation Economist Name Role Phone Priti Walsh Primary Care Provider [phone] Reason for Referral * Diagnostic Test (Routine) - Closed Specialty Diagnoses / Procedures Referred By Contac t Referred To Contact Diagnoses Abnormal cardiovascular stress test Procedures Echocardiogram Stress (Treadmill) Luis Gallardo MD [facility] [place] [address] [facility] [place] [address] Referral ID Status Reason Start Date Expiration Date V isits Requested Visits Authorized [id number] Closed Specialty Service Requested 08/13/2019 02/09/2020 1 1 Reason for Visit * Diagnostic Test (Routine) - Closed Specialty Diagnoses / Procedures Referred By Contac t Referred To Contact Diagnoses Abnormal cardiovascular stress test Procedures Echocardiogram Stress (Treadmill) Luis Gallardo MD [facility] [place] [address] [facility] [place] [address] Referral ID Status Reason Start Date Expiration Date V isits Requested Visits Authorized [id number] Closed Specialty Service Requested 08/13/2019 02/09/2020 1 1 Encounter Details Date Type Department Care Team (Latest Contact Info) Description 08/20/2019 12:40 PM EDT - 08/20/2019 11:59 PM EDT Hospital Encounter Non-[place] [id number] Luis Casillas MD [facility] [place] [address] Abnormal cardiovascular stress test Discharge Disposition: Home [...] Barroso ? (Age): 1955(63y) Med Rec#: ? [id number] ?Sex: ?F ? Site Loc: ? [facility] ?Ht / Wt: ??165(cm)/61(kg) Pt. Loc: ?Echo Lab ?BSA: ?1.67 Study Date: ?? 08/20/2019 ?Pt. Type: Tape: ? Referring: JULIO Referring: Luis Casillas ([id number]) Reading: Dayo Vera ([id number]) Decorative Cutting Machine Tender: Maddie Liriano Lithographic Proofer: Rory Harris [facility] Lithographic Proofer 2: Lynne Bustillos Diagnosis: *Abnormal result of [...] Normal ? Mid-Inferoseptal ?Normal ? Normal ? Emigrant-Septal ? Normal ? Normal ? [place]-Anterior ? Normal ? Normal ? [place]-Lateral ?Normal ? Normal ? [place]igrant-Inferior ? Normal ? Normal ? Emigrant-Tip ?Normal ? Normal ? This report has been electronically signed by: Dayo Vera MD ? 08/20/2019 14:45:26 Images reviewed and interpretation verified [facility] Cardiac Ultrasound Laboratory Procedure Note Dayo Vera MD - 08/20/2019 Procedure: Stress Echocardiogram Patient: EDILMA WALKER(Age): 1955(63y) Med Rec#: [id number] Sex: F Site Loc: [facility] Ht / Wt: 165(cm)/61(kg) Pt. Loc: Echo Lab BSA: 1.67 Study Date: 08/20/2019 Pt. Type: Tape: Referring: NIECYNATBRYAN Referring: Luis Casillas ([id number]) Reading: Dayo Vera ([id number]) Decorative Cutting Machine Tender: Maddie Liriano Lithographic Proofer: Rory Harris [facility] Lithographic Proofer 2: Friend, Lynne Diagnosis: *Abnormal result of [...] Normal Mid-Inferior Normal Normal Mid-Inferoseptal Normal Normal Em[place]-Septal Normal Normal Emigrant-Anterior Normal Normal Emigrant-Lateral Normal Normal Emigrant-Inferior Normal Normal Emigrant-Tip Normal Normal This report has been electronically signed by: Dayo Vera MD 08/20/2019 14:45:26 Images reviewed and interpretation verified [facility] Cardiac Ultrasound Laboratory Luis Casillas [...] mLs documented in this encounter Care Teams Taxation Economist Relationship Specialty Start Date End Date Priti Walsh PA [address] [place] [address] PCP - General Family Medicine 08/07/19 09/29/19 documented as of this encounter
--- OUTSIDE RECORDS SUMMARY | 2023-10-11 06:03 | XMS_ITS | Encounter Summary ---
Author Organization [facility] Address [address] [place] [address] Care Team Providers Care Fur Puller Name Role Phone Unknown, Provider Primary Care Provider [phone] Encounter Details Date Type Department Care Team (Late st Contact Info) Description 06/21/2015 Results Only [facility] [phone] Timur La MD [address] [facility] [address] [place] [id number] Social History Tobacco Use Types Packs/Day Years [...] ? SYLWIA FRANCE ? Accession #: ? [id number] ? : ? 1955 (Age: 59) ??F [...] Diaz 06/23/2015 9:19 AM End of Report [facility] 06/21/2015 20:4 3 EDT 06/22/2015 20:43 EDT Timur La MD PATHOLOGY ORDERABLES [facility] [address] [place] [address] documented in this encounter Visit Diagnoses Not on filedocumented in this encounter Care Teams Fur Puller Relationship Specialty Start Date End Date Unknown, Provider, PCP - General 12/21/14 documented as of this encounter
--- OUTSIDE RECORDS SUMMARY | 2023-10-11 06:03 | XMS_ITS | Encounter Summary ---
Author Organization [facility] Address [address] [place] [address] Care Team Providers Care Emergency Planning And Response Manager Name Role Phone Unknown, Provider Primary Care Provider [phone] Encounter Details Date Type Department Care Team ([facility] st Contact Info) Description 11/21/2018 Results Only [facility] [phone] Isabella Linn MD [address] [place] [address] Social History Tobacco Use Types Packs/Day Years [...] ? SYLWIA FRANCE ? Accession #: ? [id number] ? : ? 1955 (Age: 63) ??F [...] Aragon 11/22/2018 11:00 AM End of Report [facility] 11/21/2018 22:1 0 EDT 11/21/2018 22:10 EDT Isabella Linn MD PATHOLOGY ORDERABLES [facility] [address] [place] [address] documented in this encounter Visit Diagnoses Not on filedocumented in this encounter Care Teams Emergency Planning And Response Manager Relationship Specialty Start Date End Date Unknown, Provider, PCP - General 12/21/14 documented as of this encounter
--- OUTSIDE RECORDS SUMMARY | 2023-10-11 06:03 | XMS_ITS | Encounter Summary ---
Author Organization [facility] Address [address] [place] [address] Care Team Providers Care Secondary Connector Armature Name Role Phone Unavailable Primary Care Provider Unavailabl e Encounter Details Date Type Department Care Team (Late st Contact Info) Description 11/10/2007 Before PRISM Converted Visit (Maple) [facility] - Maple conversion [address] [place] [address] Tete Walsh PA-C [address] [place] [address] Social History Tobacco Use Types Packs/Day Years [...] ? SYLWIA FRANCE ? Accession #: ? [id number] ? : ? 1955 (Age: 52) ??F [...] PATHOLOGY ADAN DON[facility]UE [facility] [address] [place] [address] documented in this encounter Visit Diagnoses Not on filedocumented in this encounter
--- OUTSIDE RECORDS SUMMARY | 2023-10-11 06:03 | XMS_ITS | Encounter Summary ---
Author Organization [facility] Address [address] [place] [address] Care Team Providers Care Hair Dryer Name Role Phone Unavailable Primary Care Provider Unavailabl e Encounter Details Date Type Department Care Team (Late st Contact Info) Description 05/15/2002 Results Only [facility] - Maple conversion [address] [place] [address] Sarah Stevens, [facility] [address] [place], [place] [address] Social History Tobacco Use Types Packs/Day Years [...] ? SYLWIA FRANCE ? Accession #: ? [id number] : ? 1955 (Age: 46) ??F ?Collect Date: ? 05/15/2002 Location: ? [facility] ? Receive Date: ? 05/19/2002 Provider: ?SARAH STEVENS PI/SENIOR RESEARCH ASSOCIATE Copy to: ? Specimen/Source: ?ThinPrep Pap Test, Cervix/Endocervix Last Menstrual Period: ? 05/10/02 ? SPECIMEN ADEQUACY ? Satisfactory for Evaluation - transformation zone component present GENERAL CATEGORIZATION ? Negative for Intraepithelial Lesion or Malignancy ? Document reviewed and electronically signed by: ? ALCIDES Kilgore(ASCP) ? Report Date: ??05/22/2002 09:48 End of Report [facility] 05/15/2002 05/19/2002 Sarah Stevens PI/SENIOR RESEARCH ASSOCIATE PATHOLOGY ORDERABLES [facility] [address] [place] [address] documented in this encounter Visit Diagnoses Not on filedocumented in this encounter
--- OUTSIDE RECORDS SUMMARY | 2023-10-11 06:03 | XMS_ITS | Encounter Summary ---
Author Organization [facility] Address [address] [place] [address] Care Team Providers Care Agent Contract Clerk Name Role Phone Unknown, Provider Primary Care Provider Encounter Details Date Type Department Care Team (Latest Contact Info) Description 11/21/2018 15:36 EDT - 11/21/2018 23:59 EDT Hospital Encounter [address] [address] Unknown, Provider, Discharge Disposition: Home or Self Care Social History Tobacco Use Types Packs/Day Years Used Date Smoking Tobacco: Never Assessed Sex and Gender Information Value Date Recorded Sex Assigned at Not on file Gender Identity Not on file Sexual Orientation Not on file documented as of this encounter Discharge Disposition Disposition Code Departure Means Destination Home or Self Retirement documented in this encounter Plan of Treatment Not on file documented as of this encounter Visit Diagnoses Not on filedocumented in this encounter Care Teams Agent Contract Clerk Relationship Specialty Start Date End Date Unknown, Provider, PCP - General 12/21/14 documented as of this encounter
--- OUTSIDE RECORDS SUMMARY | 2023-10-11 06:03 | XMS_ITS | Encounter Summary ---
Author Organization [facility] [place] [address] Care Team Providers Care Supervisor Vendor Quality Name Role Phone Priti Walsh Primary Care Provider [phone] Encounter Details Date Type Department Care Team (Late st Contact Info) Description 08/20/2019 Telephone Non-Invasive [place] [phone] Luis Gallardo MD [facility] [place] [address] Social History Tobacco Use Types Packs/Day Years [...] on filedocumented in this encounter Care Teams Supervisor Vendor Quality Relationship Specialty Start Date End Date Priti Walsh PA [address] [place], [place] [id number] PCP - General Family Medicine 08/07/19 09/29/19 documented as of this encounter
[2023-10-11] MEDS: Lactated Ringers 1,000 ML 30 ML IV (06:41)
--- NOTE | 2023-10-11 07:05 | W.PM.DSUDISC ---
Date of service: 10/11/23 Time of Service: 10:00 Discharge Plan Disposition Patient Disposition: Home Condition: Stable Discharge Details Attending Provider: Yvon Lott Primary Care Provider: Priti Walsh Home Meds and New Rx's Prescriptions: New naproxen 250 mg tablet 250 mg PO BID PRN (Reason: moderate pain and swelling) Qty: 40 0RF oxycodone 5 mg tablet 5 - 10 mg PO .q4-6h PRN (Reason: severe pain) Qty: 18 0RF Continued triamcinolone acetonide 0.1 % cream 1 applic topical BID imiquimod 5 % cream in packet 1 packet topical .twice weekly 90 Days Qty: 12 1RF Rx Instructions: Apply prior to normal sleeping hrs and leave on for 6 to 10 hrs. Discharge Instructions Additional Instructions: Surgery: Right shoulder arthroscopy with rotator cuff repair (supraspinatus), biceps tenodesis, extensive debridement, and subacromial decompression. Activity: For 6 weeks, you should keep your arm at your side in a neutral position at all times except for physical therapy. Do not try to lift or raise your arm using your own muscles. You should use the sling whenever you are out of the house. At home it is best to remove the sling and rest the arm on a pillow at your side or support the operative side with your other hand. You may allow the arm to dangle at your side. A physical therapy prescription will be sent electronically to begin in about 3 weeks. Standard protocol. Prescriptions: Naproxen 250 mg take 1 every 12 hours with a meal as needed for moderate pain Oxycodone 5 mg take 1-2 every 4-6 hours as needed for severe pain You may use [id number]-[id number] Tylenol (acetaminophen) as needed for mild pain. These pain medications may be taken all at once or in different combinations as needed. Also, recommend Colace (docusate) as a stool softener as surgery and pain medicine cause constipation. You may try hzti-mfh-rysctpl diphenhydramine (Benadryl) 25-50 mg nightly as a sleep aid Dressings: Remove shoulder bandage after 3 days. Leave the sticky Steri-Strips in place until they fall off or remove them after you shower. Cover the incisions with Band-Aids or leave them open to air. You may shower after 5 days. Follow-up: 10-[address] Lott You may take off the leg compression stockings this evening at home. You may also leave them on a few days longer if you have a history of leg swelling or edema. Let us know right away if you develop any redness, drainage, fevers, chest pain, or trouble breathing. Do not drink alcohol or drive for at least 24 hours after anesthesia. Please call the office during business hours with any questions or concerns. Discharge Orders Discharge Orders: Discharge Order (Routine); Ordered 10/11/23 Ordered By: Ariane Carlson DS: Diagnosis Discharge Diagnosis (1) Right rotator cuff tear: Status: Acute (2) Tendonitis of long head of biceps brachii of right shoulder: Status: Acute
--- NOTE | 2023-10-11 07:20 | W.PM.OP ---
Date of service: 10/11/23 Time of Service: 07:30 Operative Note Operative Note DATE OF PROCEDURE: 10/11/23 PRE-OP DIAGNOSIS: Right: 1. Rotator cuff tear 2. LHB tendinopathy 3. Bursitis POST-OP DIAGNOSIS: same PROCEDURE: Right: 1. Rotator cuff repair, CPT# 65051. This involved repair of the supraspinatus using anchors and sutures to reattach the rotator cuff back to the footprint of the greater tuberosity. 2. Arthroscopic biceps tenodesis, CPT# 53038. This involved arthroscopically suturing and reattaching the long head of the biceps tendon to the proximal humerus at the superior margin of the bicipital groove with a screw at the correct tension. 3. Extensive debridement, CPT# 85537. This involved using arthroscopic hand instruments, power instruments, and radiofrequency instruments to release the long head of the biceps tendon and debride areas of SLAP tearing, labral tearing, capsulitis anteriorly superiorly, rotator interval synovitis, and mild central glenoid chondromalacia working about the glenohumeral joint anteriorly, superiorly and posteriorly. 4. Subacromial decompression with partial acromioplasty, CPT# 55381. This involved using arthroscopic power instruments and a radiofrequency wand to complete a bursectomy and smooth the undersurface of the acromion. The mail handler assistant was medically required in order to help assist in techniques above, which require positioning the arm, holding the arthroscope, and manipulating multiple instruments and sutures at the same time. This cannot be done without the help of an experienced mail handler assistant. SURGEON: Yvon Lott METAL MOULDER'S ASSISTANT: Ariane Carlson ANESTHESIA TYPE: Local By Surgeon and General LMA/ETT Refer to Anesthesia Record ESTIMATED BLOOD LOSS: 5 PATHOLOGY: none sent COMPLICATIONS: None Patient was transported to: PACU Patient's condition: stable Implants: Arthrex: 4.75mm SwiveLocks x 4 Indications: The patient was diagnosed with the above conditions and appropriately indicated for surgical intervention. Please see complete medical record for details. Findings: Exam under anesthesia: Full range of motion, no instability Glenohumeral joint: Mild central glenoid chondromalacia. Obvious full-thickness supraspinatus rotator cuff tear. Intact subscapularis and infraspinatus. SLAP tear biceps injection with biceps tendon somewhat confluent with the retracted anterior aspect of the supraspinatus superior capsule. Subacromial space: Moderate bursitis. Full-thickness moderately retracted supraspinatus tear with mild tendon remnant central tuberosity. Largely intact infraspinatus wrapping around from posterior. Moderate thickening then tendon delamination centrally to posteriorly of the supraspinatus tear. Procedure Description: In the operating room, general anesthesia was induced. Bilateral shoulders were examined. The patient was positioned in the beachchair position. All bony prominences were well-padded. Preoperative antibiotics were administered. The shoulder was prepped and draped in the usual sterile fashion. The correct patient, procedure, and side of the procedure were all verified prior to incision. Starting through the posterior portal a standard complete diagnostic arthroscopy was performed of the glenohumeral joint including inspection of the long head of the biceps, anterior and superior labrum, subscapularis tendon, supraspinatus and infraspinatus tendons, and axillary recess. The glenoid and humeral head cartilage as well as the posterior labrum were inspected from an anterior superior lateral viewing portal working through the full-thickness rotator cuff tear, omitting a straight anterior portal. Significant findings and interventions noted above. An all-arthroscopic suprapectoral biceps tenodesis was performed through an anterior portal using a Loop N Tack method with a SutureTape FiberLink cinched around and through the tendon working through the ASL portal. The tendon was wrapped with suture again and passed through for additional fixation. The tendon was amputated from the superior labrum which had some redundant tissue probably relating to a SLAP tear as well as dissected off and with arthropathy scissors from the superior capsule and supraspinatus tear. Biceps was sutured and marked at the appropriate level fixation planned with the anterior medial row of the rotator cuff and repair suture and tendon maintained out of the way for later combined repair. Starting through the posterior portal, the arthroscope was directed into the subacromial space. A lateral 50 yard line lateral portal was created. A combination of power instruments and a radiofrequency ablator were used to debride bursitis anteriorly, posteriorly, and laterally as well as expose and smooth bone spurring on the undersurface of the acromion. The coracoacromial ligament was partially released. The bursectomy was completed viewing laterally and working from posteriorly and the rotator cuff was thoroughly inspected with findings noted above. Passport cannulas were established at the anterior superior lateral and posterior superolateral portals with a Carly cannula inserted laterally. The tear was thoroughly inspected with the greater tuberosity debrided of some tendon remnant as well as fraying at the tendon edge and arm position and tendon excursion confirmed to be good with the tuberosity thoroughly repaired to optimize bone and tendon healing. The central to anterior portion of the tear nicely reapposed to some of the far lateral remnant. The central to posterior tear nicely reapposed to the largely intact infraspinatus with mild fraying wrapping around posteriorly. The delaminated undersurface portion contained the superior capsule and rotator cable and could be restored to the medial margin of the footprint, which was prepared to the articular margin to optimize bone tendon interface for healing. An anterior medial row anchor was placed knotless 4.75 mm SwiveLock with the knotless repair suture used and additional security and strength of the biceps repair with this anchor also containing the biceps tears repair suture completing the tenodesis. The fiber tapes that had been preloaded were then shuttled through the appropriate anterior medial margin of the rotator cuff using the [employer] self retrieving suture passer and a FiberLink shuttling them together. A posterior medial row anchor was placed similarly knotless 4.75 mL SwiveLock with the FiberTape's past through each layer of the cuff in pairs and confirmed to bring the reduction appropriately of the inferior and superior layers of the tear from medial to lateral together. The knotless repair suture from this anchor was shuttled through the inferior delaminated portion of the cuff in a horizontal mattress configuration then then secured through the knotless anchor eyelet mechanism. Arm position and tendon reduction was confirmed through the Carly clear cannula insert to the anterior lateral and posterior positions. An additional suture tape FiberLink in cinch mode was placed centrally and then secured with 1 fiber tape from each anterior posterior anchor to an anterior lateral row SwiveLock anchor. A last additional suture tape FiberLink was placed far posterior cinched and secured with the remaining FiberTape tails from each anterior and posterior anchor to a posterior lateral SwiveLock anchor. There was excellent tendon reduction, fixation strength, increased compression across the whole greater tuberosity. The supraspinatus was well reapposed about its margin with the intact infraspinatus. Repair was quite stable through testing. The shoulder was drained of arthroscopic fluid. All portal sites were copiously irrigated. These incisions were closed using 3-0 Monocryl in a buried fashion and then covered with Mastisol, Steri-Strips, Xeroform, dry gauze, and ABDs. The dressings were covered and secured with Medipore tape. The operative extremity was placed into a sling for immobilization. The patient awoke from anesthesia without complication and was transferred to the recovery room in a stable condition.
[2023-10-11] MEDS: TRANEXAMIC ACID/SOD. CHL. 1,000 MG/100 ML BAG 600 MG IVPB (07:28)
[2023-10-11] MEDS: ceFAZolin 2 GM/50 ML BAG IVPB (07:33)
[2023-10-11] MEDS: Bupivacaine 0.25% Pres-Free W/EPI 30 ML VIAL (08:17)
[2023-10-11] MEDS: EPINEPHrine 10 MG/10 ML ML (10:00)
[2023-10-11] MEDS: fentaNYL 100 MCG/2 ML VIAL IVP ×2 (10:13→10:39)
--- NOTE | 2023-10-11 10:22 | W.ANESPOSTOP ---
Postoperative Evaluation Date, Time and Location Date Performed: 10/11/23 Time Performed: 10:22 Patient Location: PACU Vital Signs Most Recent Imported Vital Signs: Most Recent Vital Signs Temp Pulse Resp BP Pulse Ox 36.1 C L 46 L 17 152/80 H 97 10/11/23 10:01 10/11/23 10:11 10/11/23 10:15 10/11/23 10:11 10/11/23 10:15 Pain Score Most Recent Pain Score: Most Recent Pain Score Pain Level 3 10/11/23 10:06 Assessment Mental Status: Awake (Alert & Oriented to Patient Baseline) Airway and Respiratory Function: Patent airway with normal (patient baseline) respiratory exam Cardiovascular Function: Hemodynamically Stable Hydration Status: Adequately Hydrated Nausea & Vomiting: No Nausea or Vomiting Pain: Pain is tolerable per patient Peripheral Nerve Block: Patient did not receive a nerve block
[2023-10-11] MEDS: Naproxen 250 MG TAB PO (11:27)
== END 2023-10-11 12:25 | disposition home or self-care (01) ==
PROVIDERS: PCP Physician Assistant Medical; Visit Provider Student in an Organized Health Care Education/Training Program
PROC: (CPT 29827; principal; 2023-10-11 07:30)
DX: M75.21 Bicipital tendinitis, right shoulder; M75.121 Complete rotator cuff tear or rupture of right shoulder, not specified as traumatic; M75.51 Bursitis of right shoulder
CPT/HCPCS: 29827; 29828; 29823; 29826; J0131; J0665; J0690; J1100; J1885; J2250; J2405; J2704; J3010; J3475

== ENCOUNTER → 2023-10-22 09:23 | Outpatient (BNVA) | payer MEDICARE, SELFPAY | PROVIDERS: PCP Physician Assistant Medical; Visit Provider Student in an Organized Health Care Education/Training Program | DX: Z47.89 Encounter for other orthopedic aftercare (principal); M25.611 Stiffness of right shoulder, not elsewhere classified ==

== ENCOUNTER → 2023-12-10 09:16 | Outpatient (BNVA) | payer MEDICARE, SELFPAY | PROVIDERS: PCP Physician Assistant Medical; Visit Provider Student in an Organized Health Care Education/Training Program | DX: Z47.89 Encounter for other orthopedic aftercare (principal); M25.611 Stiffness of right shoulder, not elsewhere classified | CPT/HCPCS: 99024 ==

== ENCOUNTER → 2024-02-18 09:24 | Outpatient (BNVA) | payer MEDICARE, SELFPAY | PROVIDERS: PCP Physician Assistant Medical; Referring Provider Physician Assistant Medical; Visit Provider Student in an Organized Health Care Education/Training Program | DX: Z47.89 Encounter for other orthopedic aftercare (principal); M25.611 Stiffness of right shoulder, not elsewhere classified | CPT/HCPCS: 99213 ==